=== PATIENT | female | born 1950 | race Hispanic/Latino ===

== ENCOUNTER 2017-03-19 11:51 | Inpatient (IN) | payer MEDICARE ==
[~2017-03-19] VITALS: Ht 157.5 cm; Wt 94.1 kg
[~2017-03-19 11:51] MED LIST: ALBU90AE IH; BUDE10.2 IH; FLUT100B IH; LISI-617 PO; METF10004 PO; MIRT15TA7 PO; OMEP40CA37 PO; PREG75 PO; ROSU20TA PO; TIOT18CA3 IH; TRAM50TA4 PO; XALA2.5OS OD; ZOLP10TA6 PO
[2017-03-19] MEDS ORDERED: FUROSEMIDE 10 MG/ML 2ML VIAL ONE (12:20)
[2017-03-19] MEDS ORDERED: FUROSEMIDE 10 MG/ML 4ML VIAL ONE (12:20)
[2017-03-19 12:32] LABS: BASOPHILS % (AUTO) 1.6 % (0.0-5.0); EOSINOPHILS % (AUTO) 7.9 % (0.0-8.0); HEMATOCRIT 27.5 % (36-48); LYMPHOCYTES % (AUTO) 11.4 % (21.0-51.0); MEAN CORPUSCULAR HEMOGLOBIN 25.7 pg (27.0-33.0); MEAN CORPUSCULAR HGB CONC 31.1 g/dL (32.0-36.0); MEAN CORPUSCULAR VOLUME 82.5 fL (79-99); MONOCYTES % (AUTO) 8.1 % (3.0-13.0); PLATELET COUNT (AUTO) 220 K/uL (130-400); RED BLOOD CELL COUNT(AUTO) 3.34 MIL/uL (4.00-5.50); RED CELL DISTRIBUTION WIDTH 18.2 % (11.0-15.5); WHITE BLOOD COUNT (AUTO) 7.7 K/uL (4.8-10.8)
[2017-03-19 12:36] LABS: ABG BASE EXCESS -10.5 mmol/L (-2.0-3.0); ABG HCO3 13.7 mmol/L (21.0-28.0); ABG OXYGEN SATURATION 97.6 % (95.0-99.0); ABG PCO2 27 mmHg (32-45)
[2017-03-19 12:40] LABS: CREATININE 6.2 mg/dL (0.5-1.5); POTASSIUM 5.4 mmol/L (3.5-5.1)
[2017-03-19 12:44] LABS: ALBUMIN 2.2 g/dL (3.5-5.0); BILIRUBIN,TOTAL 0.5 mg/dL (0.2-1.0); TOTAL PROTEIN, SERUM 6.8 g/dL (6.0-8.3)
[2017-03-19] MEDS ORDERED: NITROGLYCERIN 0.4 MG SL TAB SL ONE (12:51)
[2017-03-19] MEDS ORDERED: NITROGLYCERIN 1GM/1 INCH PACKET TD ONE (12:52)
[2017-03-19 13:37] LABS: INR 1.02 (0.85-1.15); PARTIAL THROMBOPLASTIN TIME 27.2 SEC (26.3-35.5); PROTHROMBIN TIME 10.7 SEC (9.6-11.6)
[2017-03-19 14:33] LABS: APPEARANCE,URINE SL CLOUDY (CLEAR); BILIRUBIN,URINE NEGATIVE (NEGATIVE); COLOR,URINE YELLOW (YELLOW); GLUCOSE, URINE (UA) 250 mg/dL (NEGATIVE); KETONES,URINE NEGATIVE (NEGATIVE); LEUKOCYTE ESTERASE ,URINE NEGATIVE (NEGATIVE); NITRATE,URINE NEGATIVE (NEGATIVE); OCCULT BLOOD,URINE SMALL (NEGATIVE); PROTEIN,URINE >=300 (NEGATIVE); UROBILINOGEN,URINE 0.2 mg/dL (0.2-1.0)
[2017-03-19 14:46] LABS: BACTERIA,URINE Few /HPF (None Seen)
[2017-03-19 14:47] LABS: COARSE GRANULAR CASTS,URINE 0-2 /LPF (None Seen); SQUAMOUS EPITHELIAL CELL,UR Few /LPF (0-2); YEAST,URINE BUDDING Rare /HPF (None Seen)
[2017-03-19] MEDS ORDERED: AMLODIPINE BESYLATE 5 MG TAB PO ONE ×2 (15:37→17:00)
[2017-03-19] MEDS ORDERED: CLONIDINE HCL 0.1 MG TABLET ONE (20:05)
[2017-03-20] VITALS (13 sets, daily range): BP systolic 137–196; BP diastolic 62–87
[2017-03-20] MEDS ORDERED: GLUCAGON 1MG KIT 1 MG ML IM PRN ×2 (01:15→02:15)
[2017-03-20] MEDS ORDERED: DEXTROSE 50%-WATER 50 ML DISP.SYRIN IV PRN ×2 (01:15→02:15)
[2017-03-20] MEDS ORDERED: LACTULOSE 20 GM/30 ML UDCUP PO PRN (01:15)
[2017-03-20] MEDS ORDERED: CLONIDINE HCL 0.1 MG TABLET PO PRN (01:15)
[2017-03-20] MEDS ORDERED: MORPHINE SULFATE 2 MG/ML 1ML SYG IVP PRN ×2 (01:15)
[2017-03-20] MEDS ORDERED: ONDANSETRON HCL 4 MG/2 ML VIAL IVP PRN (01:15)
[2017-03-20] MEDS ORDERED: METOLAZONE 2.5 MG TABLET PO SCH (02:15)
[2017-03-20] MEDS ORDERED: AMLODIPINE BESYLATE 5 MG TAB PO SCH (02:15)
[2017-03-20] MEDS ORDERED: IPRATROPIUM/ALBUTEROL SULFATE 3 ML SOLUTION IH ONE (02:28)
[2017-03-20] MEDS: INSULIN R PO SS1 SQ SCH ×4 (05:52→21:00)
[2017-03-20] MEDS ORDERED: IPRATROPIUM/ALBUTEROL SULFATE 3 ML SOLUTION IH PRN (06:00)
[2017-03-20 06:24] LABS: INR 1.08 (0.85-1.15); PARTIAL THROMBOPLASTIN TIME 27.5 SEC (26.3-35.5); PROTHROMBIN TIME 11.3 SEC (9.6-11.6)
[2017-03-20 06:43] LABS: % IRON SATURATION 6.6 % (22-44)
[2017-03-20] MEDS ORDERED: INSULIN HUMULIN R 100 UNIT/ML 3ML SQ SCH (07:30)
[2017-03-20] MEDS: FAMOTIDINE 20MG TAB 20 MG TAB PO SCH ×2 (08:21→21:03)
[2017-03-20] MEDS ORDERED: FUROSEMIDE 10 MG/ML 4ML VIAL IVP SCH (09:00)
[2017-03-20] MEDS ORDERED: COMPOUND IV MISC 1 EACH IVSOLN MISC PRN (09:30)
[2017-03-20] MEDS ORDERED: LIDOCAINE HCL 1% MDV 50ML VIAL ONE (09:33)
[2017-03-20] MEDS ORDERED: CEFAZOLIN 1GM / D5W 50ML 50 ML ONE (10:17)
[2017-03-20 11:02] LABS: HEMATOCRIT 24.3 % (36-48)
[2017-03-20 11:09] LABS: HEMOGLOBIN A1C 7.3 % (4.0-6.0)
[2017-03-20 11:11] LABS: ALBUMIN 1.9 g/dL (3.5-5.0); CREATININE 6.4 mg/dL (0.5-1.5)
[2017-03-20] MEDS ORDERED: IRON SUCROSE COMPLEX 100 MG in SODIUM CHLORIDE 0.9% 50 ML IV SCH (12:30)
[2017-03-20] MEDS: IRON SUCROSE COMPLEX 100 MG in SODIUM CHLORIDE 0.9% 50 ML IV SCH (13:26)
[2017-03-20] MEDS: LISINOPRIL 20 MG TABLET PO SCH (13:26)
[2017-03-20] MEDS: IPRATROPIUM/ALBUTEROL SULFATE 3 ML SOLUTION IH SCH (18:38)
[2017-03-20] MEDS ORDERED: SODIUM CHLORIDE 0.9% 1000ML 1,000 ML IV ONE (20:28)
[2017-03-20] MEDS ORDERED: HEPARIN SODIUM 5000UNIT/ML 1ML VIAL ONE (20:33)
[2017-03-20] MEDS ORDERED: SODIUM CHLORIDE 0.9% 1000ML 1,000 ML IV PRN (21:00)
[2017-03-20] MEDS ORDERED: HEPARIN SODIUM 5000UNIT/ML 1ML VIAL IJ PRN (21:00)
[2017-03-20] MEDS ORDERED: ALBUMIN (HUMAN) 25% 100 ML IV PRN (21:00)
[2017-03-20] MEDS ORDERED: 0.9% SODIUM CHLORIDE 250 ML IV BAG IV PRN (21:00)
[2017-03-20] MEDS: HYDRALAZINE HCL 20 MG/ML VIAL IV PRN (23:16)
[2017-03-21] MEDS: IPRATROPIUM/ALBUTEROL SULFATE 3 ML SOLUTION IH SCH ×4 (00:15→19:09)
[2017-03-21 00:27] VITALS: BP 175/77
[2017-03-21] MEDS: ACETAMINOPHEN 325 MG TAB PO PRN (00:51)
[2017-03-21 04:00] VITALS: BP 150/65
[2017-03-21 04:31] LABS: BASOPHILS % (AUTO) 1.6 % (0.0-5.0); EOSINOPHILS % (AUTO) 6.2 % (0.0-8.0); HEMATOCRIT 24.2 % (36-48); LYMPHOCYTES % (AUTO) 9.8 % (21.0-51.0); MEAN CORPUSCULAR HEMOGLOBIN 25.5 pg (27.0-33.0); MEAN CORPUSCULAR HGB CONC 31.5 g/dL (32.0-36.0); MEAN CORPUSCULAR VOLUME 80.9 fL (79-99); MONOCYTES % (AUTO) 9.1 % (3.0-13.0); NEUTROPHILS % (AUTO) 73.3 % (40.0-77.0); PLATELET COUNT (AUTO) 179 K/uL (130-400); RED BLOOD CELL COUNT(AUTO) 2.99 MIL/uL (4.00-5.50); RED CELL DISTRIBUTION WIDTH 18.1 % (11.0-15.5); WHITE BLOOD COUNT (AUTO) 7.9 K/uL (4.8-10.8)
[2017-03-21 04:50] LABS: CREATININE 5.1 mg/dL (0.5-1.5); POTASSIUM 4.6 mmol/L (3.5-5.1); THYROID STIMULATING HORMONE 5.27 uIU/mL (0.36-3.74)
[2017-03-21 04:53] LABS: B-TYPE NATRIURETIC PEPTIDE 1180 pg/mL (0-100)
[2017-03-21] MEDS: INSULIN R PO SS1 SQ SCH ×4 (05:59→21:00)
[2017-03-21 07:23] LABS: HEPATITIS Bs ANTIGEN SCREEN P Negative (Negative)
[2017-03-21 08:03] VITALS: BP 157/61
[2017-03-21] MEDS: FAMOTIDINE 20MG TAB 20 MG TAB PO SCH ×2 (08:05→21:23)
[2017-03-21] MEDS ORDERED: ENOXAPARIN SODIUM 30 MG/0.3 ML SQ SCH (09:00)
[2017-03-21] MEDS: IRON SUCROSE COMPLEX 100 MG in SODIUM CHLORIDE 0.9% 50 ML IV SCH (09:12)
[2017-03-21] MEDS: LISINOPRIL 20 MG TABLET PO SCH (09:12)
[2017-03-21] MEDS ORDERED: MONT10TA21 PO (11:23)
[2017-03-21] MEDS ORDERED: GABA-533 PO (11:23)
[2017-03-21] MEDS ORDERED: INSU200I4 SQ (11:23)
[2017-03-21] MEDS ORDERED: BIMA12.5OS OU (11:23)
[2017-03-21] MEDS ORDERED: CYCL30DR OU (11:23)
[2017-03-21] MEDS ORDERED: LINA290C PO (11:23)
[2017-03-21] MEDS ORDERED: AMLO5TAB2 PO (11:23)
[2017-03-21] MEDS ORDERED: ALBU18HF7 IH (11:23)
[2017-03-21] MEDS ORDERED: HYDR-3421 PO (11:23)
[2017-03-21 11:31] VITALS: BP 188/80
[2017-03-21] MEDS ORDERED: TRAMADOL HCL 50 MG TABLET PO PRN (12:00)
[2017-03-21] MEDS ORDERED: SUB TO ALBUTEROL 2.5MG/3ML NEBULES PER P&T IH PRN (12:00)
[2017-03-21] MEDS: GABAPENTIN 100 MG CAPSULE PO SCH ×2 (14:00→21:23)
[2017-03-21] MEDS: GABAPENTIN 300 MG CAPSULE PO SCH ×2 (14:00→21:23)
[2017-03-21] MEDS ORDERED: PHARMACY COMMUNICATION MISC SCH (15:00)
[2017-03-21 16:14] VITALS: BP 198/94
[2017-03-21] MEDS ORDERED: LORAZEPAM 0.5 MG TABLET PO PRN (17:15)
[2017-03-21 20:41] VITALS: BP 181/76
[2017-03-21] MEDS: BIMATOPROST OU SCH (21:00)
[2017-03-21] MEDS: **HM**(Cyclosporine (Restasis) 1 EACH) OU SCH (21:00)
[2017-03-21] MEDS: ZOLPIDEM TARTRATE 5 MG TAB PO SCH (21:23)
[2017-03-21] MEDS: HYDROXYZINE HCL 25 MG TABLET PO SCH (21:23)
[2017-03-21] MEDS: MONTELUKAST SODIUM 10 MG TAB PO SCH (21:23)
[2017-03-21] MEDS: HYDRALAZINE HCL 20 MG/ML VIAL IV PRN (23:11)
[2017-03-22] VITALS: BP 184/97
[2017-03-22] MEDS: IPRATROPIUM/ALBUTEROL SULFATE 3 ML SOLUTION IH SCH ×4 (01:31→19:19)
[2017-03-22 04:00] VITALS: BP 153/63
[2017-03-22 05:14] LABS: BASOPHILS % (AUTO) 1.9 % (0.0-5.0); HEMATOCRIT 26.1 % (36-48); LYMPHOCYTES % (AUTO) 13.8 % (21.0-51.0); MEAN CORPUSCULAR HEMOGLOBIN 26.2 pg (27.0-33.0); MEAN CORPUSCULAR HGB CONC 32.6 g/dL (32.0-36.0); MEAN CORPUSCULAR VOLUME 80.4 fL (79-99); MONOCYTES % (AUTO) 13.2 % (3.0-13.0); NEUTROPHILS % (AUTO) 62.1 % (40.0-77.0); PLATELET COUNT (AUTO) 166 K/uL (130-400); RED BLOOD CELL COUNT(AUTO) 3.25 MIL/uL (4.00-5.50); WHITE BLOOD COUNT (AUTO) 7.4 K/uL (4.8-10.8)
[2017-03-22 05:31] LABS: CREATININE 4.2 mg/dL (0.5-1.5); POTASSIUM 3.8 mmol/L (3.5-5.1)
[2017-03-22 05:32] LABS: B-TYPE NATRIURETIC PEPTIDE 1540 pg/mL (0-100)
[2017-03-22] MEDS: INSULIN R PO SS1 SQ SCH ×4 (06:36→21:00)
[2017-03-22 08:00] VITALS: BP 145/66
[2017-03-22] MEDS: AMLODIPINE BESYLATE 5 MG TAB PO SCH (08:23)
[2017-03-22] MEDS: LISINOPRIL 20 MG TABLET PO SCH (08:23)
[2017-03-22] MEDS: FAMOTIDINE 20MG TAB 20 MG TAB PO SCH ×2 (08:23→21:11)
[2017-03-22] MEDS: HYDROXYZINE HCL 25 MG TABLET PO SCH ×2 (08:23→21:11)
[2017-03-22] MEDS: GABAPENTIN 100 MG CAPSULE PO SCH ×3 (08:23→21:11)
[2017-03-22] MEDS: GABAPENTIN 300 MG CAPSULE PO SCH ×3 (08:24→21:11)
[2017-03-22] MEDS: **HM**(Cyclosporine (Restasis) 1 EACH) OU SCH ×2 (08:30→21:00)
[2017-03-22] MEDS: ***HM*** (Linaclotide (Linzess) 290 MCG) PO SCH (08:30)
[2017-03-22] MEDS ORDERED: IRON SUCROSE COMPLEX 100 MG in SODIUM CHLORIDE 0.9% 50 ML IV SCH (09:00)
[2017-03-22] MEDS: IRON SUCROSE COMPLEX 100 MG in SODIUM CHLORIDE 0.9% 50 ML IV SCH (09:31)
[2017-03-22 12:00] VITALS: BP 167/71
[2017-03-22 15:48] VITALS: BP 152/67
[2017-03-22] MEDS: BIMATOPROST OU SCH (21:00)
[2017-03-22] MEDS: ZOLPIDEM TARTRATE 5 MG TAB PO SCH ×2 (21:00→21:19)
[2017-03-22] MEDS: MONTELUKAST SODIUM 10 MG TAB PO SCH (21:11)
[2017-03-23] VITALS (8 sets, daily range): BP systolic 132–202; BP diastolic 60–94
[2017-03-23] MEDS: IPRATROPIUM/ALBUTEROL SULFATE 3 ML SOLUTION IH SCH ×5 (00:05→23:21)
[2017-03-23 05:38] LABS: BASOPHILS % (AUTO) 1.1 % (0.0-5.0); EOSINOPHILS % (AUTO) 8.7 % (0.0-8.0); HEMATOCRIT 26.9 % (36-48); LYMPHOCYTES % (AUTO) 12.1 % (21.0-51.0); MEAN CORPUSCULAR HEMOGLOBIN 26.4 pg (27.0-33.0); MEAN CORPUSCULAR HGB CONC 31.9 g/dL (32.0-36.0); MEAN CORPUSCULAR VOLUME 82.7 fL (79-99); MONOCYTES % (AUTO) 12.8 % (3.0-13.0); NEUTROPHILS % (AUTO) 65.3 % (40.0-77.0); PLATELET COUNT (AUTO) 175 K/uL (130-400); RED BLOOD CELL COUNT(AUTO) 3.26 MIL/uL (4.00-5.50); RED CELL DISTRIBUTION WIDTH 17.1 % (11.0-15.5); WHITE BLOOD COUNT (AUTO) 7.4 K/uL (4.8-10.8)
[2017-03-23 05:44] LABS: POTASSIUM 4.1 mmol/L (3.5-5.1)
[2017-03-23 06:07] LABS: B-TYPE NATRIURETIC PEPTIDE 1150 pg/mL (0-100)
[2017-03-23] MEDS: INSULIN R PO SS1 SQ SCH ×4 (07:06→21:00)
[2017-03-23] MEDS: GABAPENTIN 100 MG CAPSULE PO SCH ×3 (08:50→21:21)
[2017-03-23] MEDS: GABAPENTIN 300 MG CAPSULE PO SCH ×3 (08:50→21:21)
[2017-03-23] MEDS: LISINOPRIL 20 MG TABLET PO SCH (08:50)
[2017-03-23] MEDS: FAMOTIDINE 20MG TAB 20 MG TAB PO SCH ×2 (08:50→21:21)
[2017-03-23] MEDS: HYDROXYZINE HCL 25 MG TABLET PO SCH ×2 (08:50→21:21)
[2017-03-23] MEDS: AMLODIPINE BESYLATE 5 MG TAB PO SCH (08:50)
[2017-03-23] MEDS: IRON SUCROSE COMPLEX 100 MG in SODIUM CHLORIDE 0.9% 50 ML IV SCH (08:54)
[2017-03-23] MEDS: **HM**(Cyclosporine (Restasis) 1 EACH) OU SCH ×2 (08:58→19:33)
[2017-03-23] MEDS: ***HM*** (Linaclotide (Linzess) 290 MCG) PO SCH (08:58)
[2017-03-23] MEDS: BENZOCAINE/MENTH/CETYLPYRD CL 1 EACH LOZENGE MM SCH ×2 (15:35→21:21)
[2017-03-23] MEDS: ACETAMINOPHEN 325 MG TAB PO PRN (16:11)
[2017-03-23] MEDS: HYDRALAZINE HCL 20 MG/ML VIAL IV PRN (16:44)
[2017-03-23] MEDS: BIMATOPROST OU SCH (19:33)
[2017-03-23] MEDS: ZOLPIDEM TARTRATE 5 MG TAB PO SCH (21:21)
[2017-03-23] MEDS: MONTELUKAST SODIUM 10 MG TAB PO SCH (21:22)
[2017-03-24 04:00] VITALS: BP 155/70
[2017-03-24 04:41] LABS: HEMATOCRIT 28.4 % (36-48); MEAN CORPUSCULAR HEMOGLOBIN 26.3 pg (27.0-33.0); MEAN CORPUSCULAR VOLUME 82.2 fL (79-99); PLATELET COUNT (AUTO) 172 K/uL (130-400); RED BLOOD CELL COUNT(AUTO) 3.45 MIL/uL (4.00-5.50); RED CELL DISTRIBUTION WIDTH 17.4 % (11.0-15.5)
[2017-03-24 04:53] LABS: CREATININE 3.7 mg/dL (0.5-1.5); POTASSIUM 4.1 mmol/L (3.5-5.1)
[2017-03-24] MEDS: IPRATROPIUM/ALBUTEROL SULFATE 3 ML SOLUTION IH SCH (05:38)
[2017-03-24] MEDS: INSULIN R PO SS1 SQ SCH ×4 (06:25→21:00)
[2017-03-24 07:00] VITALS: BP 161/62
[2017-03-24] MEDS: GABAPENTIN 100 MG CAPSULE PO SCH ×3 (08:29→21:53)
[2017-03-24] MEDS: AMLODIPINE BESYLATE 5 MG TAB PO SCH (08:30)
[2017-03-24] MEDS: FAMOTIDINE 20MG TAB 20 MG TAB PO SCH ×2 (08:30→21:53)
[2017-03-24] MEDS: GABAPENTIN 300 MG CAPSULE PO SCH ×3 (08:30→21:00)
[2017-03-24] MEDS: BENZOCAINE/MENTH/CETYLPYRD CL 1 EACH LOZENGE MM SCH ×3 (08:30→21:54)
[2017-03-24] MEDS: LISINOPRIL 20 MG TABLET PO SCH (08:30)
[2017-03-24] MEDS: HYDROXYZINE HCL 25 MG TABLET PO SCH ×2 (08:30→21:53)
[2017-03-24] MEDS: **HM**(Cyclosporine (Restasis) 1 EACH) OU SCH ×2 (09:00→21:00)
[2017-03-24] MEDS: ***HM*** (Linaclotide (Linzess) 290 MCG) PO SCH (09:00)
[2017-03-24] MEDS: IRON SUCROSE COMPLEX 100 MG in SODIUM CHLORIDE 0.9% 50 ML IV SCH (09:06)
[2017-03-24 11:36] VITALS: BP 193/80
[2017-03-24] MEDS ORDERED: IPRATROPIUM/ALBUTEROL SULFATE 3 ML SOLUTION IH PRN (12:45)
[2017-03-24 15:00] VITALS: BP 180/73
[2017-03-24 20:00] VITALS: BP 155/70
[2017-03-24] MEDS: BIMATOPROST OU SCH (21:00)
[2017-03-24] MEDS: MONTELUKAST SODIUM 10 MG TAB PO SCH (21:53)
[2017-03-24] MEDS: ZOLPIDEM TARTRATE 5 MG TAB PO SCH (21:53)
[2017-03-25] VITALS (27 sets, daily range): BP systolic 124–174; BP diastolic 49–84
[2017-03-25 05:54] LABS: HEMATOCRIT 28.8 % (36-48); MEAN CORPUSCULAR HEMOGLOBIN 26.9 pg (27.0-33.0); MEAN CORPUSCULAR HGB CONC 32.2 g/dL (32.0-36.0); MEAN CORPUSCULAR VOLUME 83.6 fL (79-99); NUCLEATED RED BLOOD CELLS 0.1 % (0.0-0.19); PLATELET COUNT (AUTO) 174 K/uL (130-400); RED BLOOD CELL COUNT(AUTO) 3.44 MIL/uL (4.00-5.50); RED CELL DISTRIBUTION WIDTH 17.8 % (11.0-15.5); WHITE BLOOD COUNT (AUTO) 6.7 K/uL (4.8-10.8)
[2017-03-25 06:00] LABS: INR 1.06 (0.85-1.15); PARTIAL THROMBOPLASTIN TIME 27.2 SEC (26.3-35.5); PROTHROMBIN TIME 11.1 SEC (9.6-11.6)
[2017-03-25 06:16] LABS: CREATININE 4.5 mg/dL (0.5-1.5); POTASSIUM 3.9 mmol/L (3.5-5.1)
[2017-03-25] MEDS: INSULIN R PO SS1 SQ SCH ×4 (07:30→20:46)
[2017-03-25] MEDS ORDERED: GENTAMICIN SULFATE/PF 10 MG/1 ML 2ML IV SCH (08:00)
[2017-03-25] MEDS: CEFAZOLIN SODIUM 1 GM VIAL IVP SCH ×2 (08:00→13:15)
[2017-03-25] MEDS ORDERED: CEFAZOLIN 2GM / 50 ML 50 ML IV SCH (08:00)
[2017-03-25] MEDS: GENTAMICIN SULFATE 200 MG in SODIUM CHLORIDE 0.9% 100 ML IV SCH ×2 (08:00→13:31)
[2017-03-25] MEDS: FAMOTIDINE 20MG TAB 20 MG TAB PO SCH ×2 (09:00→20:56)
[2017-03-25] MEDS: GABAPENTIN 300 MG CAPSULE PO SCH ×3 (09:00→20:55)
[2017-03-25] MEDS: GABAPENTIN 100 MG CAPSULE PO SCH ×3 (09:00→20:55)
[2017-03-25] MEDS: **HM**(Cyclosporine (Restasis) 1 EACH) OU SCH ×2 (09:00→21:00)
[2017-03-25] MEDS: BENZOCAINE/MENTH/CETYLPYRD CL 1 EACH LOZENGE MM SCH ×3 (09:00→20:55)
[2017-03-25] MEDS: ***HM*** (Linaclotide (Linzess) 290 MCG) PO SCH (09:00)
[2017-03-25] MEDS ORDERED: BUPIVACAINE/PF 0.25% 30ML VIAL IJ ONE (12:46)
[2017-03-25] MEDS ORDERED: LIDOCAINE HCL 1% 20 ML VIAL ONE (12:46)
[2017-03-25] MEDS ORDERED: BUPIVACAINE/PF 0.5% 30ML VIAL ONE (12:47)
[2017-03-25] MEDS ORDERED: PROPOFOL 10 MG/ML 20ML VIAL IV ONE (13:11)
[2017-03-25] MEDS ORDERED: HEPARIN SODIUM 1000UNIT/ML 10ML VIAL ONE (13:11)
[2017-03-25] MEDS: HYDROXYZINE HCL 25 MG TABLET PO SCH ×2 (14:30→21:00)
[2017-03-25] MEDS: IRON SUCROSE COMPLEX 100 MG in SODIUM CHLORIDE 0.9% 50 ML IV SCH (16:46)
[2017-03-25] MEDS: AMLODIPINE BESYLATE 5 MG TAB PO SCH (16:48)
[2017-03-25] MEDS: MONTELUKAST SODIUM 10 MG TAB PO SCH (20:56)
[2017-03-25] MEDS: ZOLPIDEM TARTRATE 5 MG TAB PO SCH (20:56)
[2017-03-25] MEDS: BIMATOPROST OU SCH (21:00)
[2017-03-26 03:00] VITALS: BP 153/61
[2017-03-26 06:12] LABS: HEMATOCRIT 29.6 % (36-48); MEAN CORPUSCULAR HEMOGLOBIN 27.4 pg (27.0-33.0); MEAN CORPUSCULAR HGB CONC 32.7 g/dL (32.0-36.0); MEAN CORPUSCULAR VOLUME 83.8 fL (79-99); PLATELET COUNT (AUTO) 175 K/uL (130-400); RED BLOOD CELL COUNT(AUTO) 3.53 MIL/uL (4.00-5.50); RED CELL DISTRIBUTION WIDTH 17.5 % (11.0-15.5); WHITE BLOOD COUNT (AUTO) 8.9 K/uL (4.8-10.8)
[2017-03-26 06:18] LABS: CREATININE 5.3 mg/dL (0.5-1.5); POTASSIUM 4.4 mmol/L (3.5-5.1)
[2017-03-26] MEDS: INSULIN R PO SS1 SQ SCH ×3 (06:36→16:30)
[2017-03-26 08:02] VITALS: BP 155/63
[2017-03-26] MEDS: GABAPENTIN 100 MG CAPSULE PO SCH ×2 (09:00→14:00)
[2017-03-26] MEDS ORDERED: LISINOPRIL 20 MG TABLET PO SCH (09:00)
[2017-03-26] MEDS: ***HM*** (Linaclotide (Linzess) 290 MCG) PO SCH (09:00)
[2017-03-26] MEDS: GABAPENTIN 300 MG CAPSULE PO SCH ×2 (09:00→14:00)
[2017-03-26] MEDS: **HM**(Cyclosporine (Restasis) 1 EACH) OU SCH (09:00)
[2017-03-26] MEDS: BENZOCAINE/MENTH/CETYLPYRD CL 1 EACH LOZENGE MM SCH ×2 (09:04→13:17)
[2017-03-26] MEDS: HYDROXYZINE HCL 25 MG TABLET PO SCH (09:05)
[2017-03-26] MEDS: AMLODIPINE BESYLATE 5 MG TAB PO SCH (09:06)
[2017-03-26] MEDS: FAMOTIDINE 20MG TAB 20 MG TAB PO SCH (09:06)
[2017-03-26] MEDS: IRON SUCROSE COMPLEX 100 MG in SODIUM CHLORIDE 0.9% 50 ML IV SCH (09:06)
[2017-03-26 11:23] VITALS: BP 161/66
[2017-03-26] MEDS: ACETAMINOPHEN 325 MG TAB PO PRN (13:17)
[2017-03-26] MEDS ORDERED: NYSTATIN 15 GM POWDER TP SCH (14:00)
[2017-03-26 16:50] VITALS: BP 167/59
== END 2017-03-26 17:29 | disposition home or self-care (01) | DRG 628 ==
LOC: EDH 11:51 → EDHIP 16:00 → OBSVTOIN 16:00 → INTOOBSV 16:00 → 4AH 03-20 00:37 → 4BH 03-24 18:20
PROVIDERS: ADMIT Family Medicine; ATTEND Family Medicine
PROC: 05HM33Z Insertion of Infusion Device into Right Internal Jugular Vein, Percutaneous Approach (ICD-10-PCS; principal; 2017-03-20)
PROC: B543ZZA Ultrasonography of Right Jugular Veins, Guidance (ICD-10-PCS; 2017-03-20)
PROC: B5131ZA Fluoroscopy of Right Jugular Veins using Low Osmolar Contrast, Guidance (ICD-10-PCS; 2017-03-20)
PROC: 30233N1 Transfusion of Nonautologous Red Blood Cells into Peripheral Vein, Percutaneous Approach (ICD-10-PCS; 2017-03-20)
PROC: 5A1D70Z Performance of Urinary Filtration, Intermittent, Less than 6 Hours Per Day (ICD-10-PCS; 2017-03-20)
PROC: 5A1D70Z Performance of Urinary Filtration, Intermittent, Less than 6 Hours Per Day (ICD-10-PCS; 2017-03-21)
PROC: 5A1D70Z Performance of Urinary Filtration, Intermittent, Less than 6 Hours Per Day (ICD-10-PCS; 2017-03-23)
PROC: 03180ZD Bypass Left Brachial Artery to Upper Arm Vein, Open Approach (ICD-10-PCS; 2017-03-25)
PROC: 5A1D70Z Performance of Urinary Filtration, Intermittent, Less than 6 Hours Per Day (ICD-10-PCS; 2017-03-26)
DX: E87.70 Fluid overload, unspecified (principal); N18.6 End stage renal disease; N17.9 Acute kidney failure, unspecified; J81.1 Chronic pulmonary edema; E11.21 Type 2 diabetes mellitus with diabetic nephropathy; I12.0 Hypertensive chronic kidney disease with stage 5 chronic kidney disease or end stage renal disease; E11.42 Type 2 diabetes mellitus with diabetic polyneuropathy; E11.51 Type 2 diabetes mellitus with diabetic peripheral angiopathy without gangrene; E66.01 Morbid (severe) obesity due to excess calories; D63.1 Anemia in chronic kidney disease; E11.22 Type 2 diabetes mellitus with diabetic chronic kidney disease; E11.319 Type 2 diabetes mellitus with unspecified diabetic retinopathy without macular edema; E78.00 Pure hypercholesterolemia, unspecified; E78.5 Hyperlipidemia, unspecified; J44.9 Chronic obstructive pulmonary disease, unspecified; R09.02 Hypoxemia; Z79.899 Other long term (current) drug therapy; Z99.2 Dependence on renal dialysis; Z91.19 Patient's noncompliance with other medical treatment and regimen; Z91.15 Patient's noncompliance with renal dialysis; Z90.710 Acquired absence of both cervix and uterus; Z68.38 Body mass index [BMI] 38.0-38.9, adult; Z91.041 Radiographic dye allergy status; Z90.49 Acquired absence of other specified parts of digestive tract; Z83.3 Family history of diabetes mellitus; Z82.49 Family history of ischemic heart disease and other diseases of the circulatory system
CPT/HCPCS: 36415; 36558; 36600; 71045; 77001; 80048; 80053; 80061; 81001; 82040; 82550; 82565; 82728; 82803; 82948; 83036; 83540; 83550; 83880; 84443; 84484; 84520; 85025; 85027; 85610; 85730; 86701; 86704; 86706; 86850; 86900; 86901; 86922; 87340; 87390; 87520; 90935; 93005; 93306; 93970; 93971; 94640; 94664; C1750; J0360; J0690; J1580; J1644; J1650; J1756; J1940; J2405; J2704; J3490; J7030; P9016

== ENCOUNTER → 2022-01-02 | Outpatient (CLI) | payer OTHER, MEDICARE ==
[~2022-01-02] MED LIST changes: +ALBU18HF7 IH; -ALBU90AE IH; +AMLO-257 PO; +BIMA12.5OS OU; -BUDE10.2 IH; +CYCL30DR OU; -FLUT100B IH; +GABA-533 PO; +HYDR-3421 PO; +INSU200I4 SQ; +LINA290C PO; -LISI-617 PO; -METF10004 PO; -MIRT15TA7 PO; +MONT10TA21 PO; +OMEP40CA21 PO; -OMEP40CA37 PO; -PREG75 PO; -ROSU20TA PO; -TIOT18CA3 IH; -XALA2.5OS OD
== END | disposition home or self-care (01) ==
LOC: SHCH 11:14
PROVIDERS: ATTEND Internal Medicine Cardiovascular Disease
DX: I50.32 Chronic diastolic (congestive) heart failure (principal); E11.9 Type 2 diabetes mellitus without complications; R07.9 Chest pain, unspecified; E78.5 Hyperlipidemia, unspecified
CPT/HCPCS: 93306

== ENCOUNTER → 2022-05-01 | Outpatient (CLI) | payer OTHER, MEDICARE ==
[~2022-05-01] MED LIST changes: +MONT-47 PO; -MONT10TA21 PO; +REGADENOSON 0.4 MG/5 ML PF SYG IVP ONE
== END | disposition home or self-care (01) ==
LOC: SHCH 09:02
PROVIDERS: ATTEND Internal Medicine Cardiovascular Disease
DX: R07.9 Chest pain, unspecified (principal); I50.32 Chronic diastolic (congestive) heart failure
CPT/HCPCS: 78452; 96374; 93017; J2785; A9500 ×2

== ENCOUNTER 2024-01-13 18:18 | Inpatient (IN) | payer OTHER, MEDICARE ==
[~2024-01-13] VITALS: Ht 149.9 cm; Wt 80.7 kg
[2024-01-13] VITALS (10 sets, daily range): BP systolic 142–172; BP diastolic 56–63; PULSE 64–90; RESP 19–22; TEMP 97.8; O2SAT 99–100
[~2024-01-13 18:18] MED LIST changes: -ALBUTEROL 0.083% 2.5 MG/3 ML INH IH ONE
[2024-01-13 18:41] LABS: BASOPHILS # (AUTO) 0.05 K/uL (0.00-0.20); BASOPHILS % (AUTO) 0.8 % (0.0-5.0); EOSINOPHILS # (AUTO) 0.43 K/uL (0.00-0.70); EOSINOPHILS % (AUTO) 6.7 % (0.0-8.0); HEMATOCRIT 37.5 % (36-48); IMMATURE GRANULOCYTE ABSOLUTE 0.04 K/uL (0-1); LYMPHOCYTES # (AUTO) 1.2 K/uL (1.0-4.8); LYMPHOCYTES % (AUTO) 18.6 % (21.0-51.0); MEAN CORPUSCULAR HEMOGLOBIN 32.7 pg (27.0-33.0); MEAN CORPUSCULAR HGB CONC 31.7 g/dL (32.0-36.0); MONOCYTES # (AUTO) 0.5 K/uL (0.1-1.0); MONOCYTES % (AUTO) 7.9 % (3.0-13.0); NEUTROPHILS # (AUTO) 4.2 K/uL (1.8-7.7); NEUTROPHILS % (AUTO) 65.4 % (40.0-77.0); PLATELET COUNT (AUTO) 92 K/uL (130-400); RED BLOOD CELL COUNT(AUTO) 3.64 MIL/uL (4.00-5.50); RED CELL DISTRIBUTION WIDTH 14.6 % (11.0-15.5); WHITE BLOOD COUNT (AUTO) 6.5 K/uL (4.8-10.8)
[2024-01-13 19:01] LABS: B-TYPE NATRIURETIC PEPTIDE 1720 pg/mL (0-100)
[2024-01-13 19:05] LABS: CREATININE 9.2 mg/dL (0.5-1.0); POTASSIUM 6.5 mmol/L (3.5-5.1)
--- NOTE | 2024-01-13 19:30 | HMCIMG ---
CHEST 1VW REASON: sob COMPARISON: 01/13/2024 FINDINGS: There is stable cardial megaly. There is no pulmonary vascular congestion. Lungs are clear. Dialysis catheter is again noted on the right. IMPRESSION: 1. Stable cardiomegaly, no acute finding.
--- NOTE | 2024-01-13 19:37 | NUR ---
ASSUMED PT CARE AT THIS TIME
--- NOTE | 2024-01-13 19:40 | NUR ---
PT REPORTS SHE MISSED DIALYSIS TODAY, LAST DIALYSIS DAY WAS SATURDAY, DIALYSIS DAYS M,W,F
[2024-01-13] MEDS: ALBUTEROL 0.083% 2.5 MG/3 ML INH IH SCH (19:56)
[2024-01-13] MEDS: CALCIUM GLUC 1GM 1 GM in 0.9%NACL 100ML 100 ML IV ONE (20:11)
[2024-01-13] MEDS: DEXTROSE 50%-WATER 25 GM/50 ML VIAL IV ONE (20:12)
[2024-01-13] MEDS: DEXTROSE 50%-WATER 50 ML DISP.SYRIN IV ONE (20:12)
[2024-01-13] MEDS: INSULIN humuLIN R 100 UNIT/ML 3ML IV ONE (20:12)
--- NOTE | 2024-01-13 20:13 | ERN ---
General Chief Complaint: Chest Pain Stated Complaint: CHEST PAIN Time Seen by MD: 18:20 Time Seen by Midlevel: 18:20 Source: patient History of Present Illness Initial Comments Patient is a 73-year-old female with a past medical history of end-stage renal disease on hemodialysis presenting to the emergency department with chest pain and shortness for breath. According to daughter was at bedside, patient was set to have her fistula fixed surgically tomorrow. She was called today to get preop labs done before 2:00 p.m. however that was at the same time her dialysis was scheduled. She decided to missed dialysis and go to her preop labs. She was later called during the day to immediately report to the ER after she was found to have a potassium of 7.5. Patient was not able to immediately report to the ER in waited several hours until her daughter could bring her to the ER. On arrival patient is reporting an increase of shortness for breath and chest pain. Denies any other complaints. Patient is on a Saturday and Saturday dialysis schedule and is followed by clarifying plant operator Dr. Lu. She has a right c hest access with her last dialysis being done on Saturday which was three days ago. Allergies: Coded Allergies: Iodinated Contrast- Oral and IV Dye (Unverified Allergy, Unknown, 03/20/17) Home Meds Reported Medications Lactulose (Lactulose) 10 Gram/15 Ml Solution, 30 ML PO BID for constipation, #500 ML 0 Refills 01/13/24 Ketorolac Tromethamine (Acular 0.5% Ophth Soln) 0.5 % Opsol, 1 DROP OD BID for itching, #5 ML 0 Refills 01/13/24 Semaglutide (Ozempic) 1 Mg/0.75 Ml (4 Mg/3 Ml) Pen.injctr, 0.5 MG SQ wed for 30 Days, #3 ML 0 Refills 01/13/24 Calcium Acetate (Calcium Acetate) 667 Mg Tablet, 2 TAB PO TID for 30 Days, #180 TAB 0 Refills WITH MEALS 01/13/24 Sodium Zirconium Cyclosilicate (Lokelma) 10 Gram Powd.pack, 1 PACKET PO ttss for 30 Days, #30 PACKET 0 Refills 01/13/24 Loteprednol Etabonate (Loteprednol Etabonate) 0.5 % Drops.susp, 2 DROP OP BID for 14 Days, #5 ML 0 Refills 01/13/24 Bimatoprost (Lumigan 0.01% Ophth Soln) 0.01 % Opsol, 1 DROP OD BID for 30 Days, ML 0 Refills 01/13/24 Aspirin (Aspirin) 81 Mg Tab.chew, 81 MG PO mwf, TAB.CHEW 01/13/24 Midodrine HCl (Midodrine HCl) 5 Mg Tablet, 1 TAB PO TID for 30 Days, #90 TAB 0 Refills 01/13/24 Diclofenac Sodium (Diclofenac Sodium) 3 % Gel..gram., 100 GM TP AD PRN for PAIN 01/13/24 Alprazolam (Alprazolam) 0.5 Mg Tab.rapdis, 0.5 MG PO AD PRN for ANXIETY/AGITATION, TAB 01/13/24 Pregabalin (Pregabalin) 100 Mg Capsule, 1 CAP PO TID PRN for PAIN MDD 3 Capsule(s) for 30 Days, #90 CAP 0 Refills 01/13/24 Tizanidine HCl (Tizanidine HCl) 4 Mg Capsule, 4 MG PO AD PRN for anxiety, CAP 01/13/24 Insulin Degludec (Tresiba Flextouch U-200) 200 Unit/Ml (3 Ml) Insuln.pen, 30 UNIT SQ HS, SYRINGE 03/21/17 Albuterol Sulfate (Ventolin Hfa) 18 Gm Hfa.aer.ad, 2 PUFF IH Q4PRN PRN for SHORTNESS OF BREATH, INHALER 03/21/17 Omeprazole (Omeprazole) 40 Mg Capsule.dr, 40 MG PO DAILY, CAP 11/16/14 Zolpidem Tartrate (Zolpidem Tartrate) 10 Mg Tablet, 10 MG PO HS, TAB 11/16/14 Discontinued Reported Medications Hydroxyzine HCl (Hydroxyzine HCl) 25 Mg Tablet, 25 MG PO BID, TAB 03/21/17 Linaclotide (Linzess) 290 Mcg Capsule, 290 MCG PO AM, CAP 03/21/17 Amlodipine Besylate (Amlodipine Besylate) 5 Mg Tablet, 5 MG PO AM, TAB 03/21/17 Cyclosporine (Restasis) 1 Each Droperette, 1 EACH OU BID, DROP 03/21/17 Montelukast Sodium (Singulair) 10 Mg Tablet, 10 MG PO HS, TAB 03/21/17 Bimatoprost (Lumigan 0.01% Ophth Soln) 0.01 % Opsol, 2 DROP OU BID, DROP 03/21/17 Gabapentin (Gabapentin) 400 Mg Capsule, 400 MG PO TID, CAP 03/21/17 Tramadol Hcl (Tramadol HCl) 50 Mg Tablet, 50 MG PO BID PRN for PAIN LEVEL 1 TO 5, TAB 11/16/14 Discontinued Scripts Cephalexin Monohydrate (Keflex) 500 Mg Cap, 500 MG PO BID for 5 Days, #10 CAP 0 Refills Prov:JOSEFINA EDWARDS MD 07/19/22 Past Medical History Past Medical History: Diabetes-Type II, Hypertension, Renal Disese, Renal Failure Past Surgical History: LAVA Social History Social History: Negative ROS Dictation CONSTITUTIONAL: Negative except for HPI HEAD/FACE: Negative except for HPI EENT: Negative except for HPI RESPIRATORY: Negative except for HPI GASTROINTESTINAL/ABDOMINAL: Negative except for HPI GENITOURINARY: Negative except for HPI MUSCULOSKELETAL: Negative except for HPI INTEGUMENTARY: Negative except for HPI NEUROLOGICAL/PSYCH: Negative except for HPI HEMATOLOGIC/LYMPHATIC: Negative except for HPI All Systems Negative, Except as noted above. 13 point review of systems assessed and all negative except for above. Physical Exam Physical Exam Dictation Vital Signs reviewed General Appearance: Alert, oriented x 3, moderate respiratory distress, ill- appearing, pale Head and Face: non-traumatic. Eyes: PERRL, pink conjunctivas, eyelid no trauma, anterior chamber with arcus senilis. Ears: Pinnas intact and no signs of trauma or erythema ear canals clear and no discharge TM no erythema Nose: No discharge, no bleeding. Oropharynx: Mouth normal, tongue pink, pharynx clear,no erythema, tonsils no exudates, no abscesses noted, mucous membrane moist Neck: Supple, non-tender, no thyromegaly, no masses, no JVD, no bruits Breast:Deferred Chest:No tenderness, no crepitus, no paradoxical movement, no retractions Lungs: Rales to bilateral lung alvarez, tachypneic Heart: Regular rate, regular rhythm, no murmur, no gallops Vascular: 2+ pitting edema to bilateral lower extremities Abdomen: Soft, positive bowel sounds, nondistended, no guarding, nontender, no rebound, no masses no hepatomegaly, no splenomegaly, no Weiss's sign, no hernias. Rectal: Deferred Genital: Deferred Neurological: Normal speech, motor function intact, sensory function intact Musculoskeletal: Neck nontender, full range of motion, back nontender, full range of motion, Extremities: nontender, full range of motion Skin: Color pink, dry, no turgor, no rash, no lacerations, no abrasions, no contusions. Lymphatic: Deferred Results Laboratory and Microbiology Lab and Micro Result Laboratory Tests Test 01/13/24 18:31 01/13/24 20:10 White Blood Count 6.5 K/uL (4.8-10.8) Red Blood Count 3.64 MIL/uL (4.00-5.50) L Hemoglobin 11.9 g/dL (12.0-16.0) L Hematocrit 37.5 % (36-48) Mean Corpuscular Volume 103.0 fL (79-99) H Mean Corpuscular Hemoglobin 32.7 pg (27.0-33.0) Mean Corpuscular Hemoglobin Concent 31.7 g/dL (32.0-36.0) L Red Cell Distribution Width 14.6 % (11.0-15.5) Platelet Count 92 K/uL (130-400) L Mean Platelet Volume 12.1 fL (7.5-10.5) H Immature Granulocyte % (Auto) 0.6 % (0-1) Neutrophils (%) (Auto) 65.4 % (40.0-77.0) Lymphocytes (%) (Auto) 18.6 % (21.0-51.0) L Monocytes (%) (Auto) 7.9 % (3.0-13.0) Eosinophils (%) (Auto) 6.7 % (0.0-8.0) Basophils (%) (Auto) 0.8 % (0.0-5.0) Neutrophils # (Auto) 4.2 K/uL (1.8-7.7) Lymphocytes # (Auto) 1.2 K/uL (1.0-4.8) Monocytes # (Auto) 0.5 K/uL (0.1-1.0) Eosinophils # (Auto) 0.43 K/uL (0.00-0.70) Basophils # (Auto) 0.05 K/uL (0.00-0.20) Absolute Immature Granulocyte (auto 0.04 K/uL (0-1) Nucleated Red Blood Cells 0.0 % (0.0-0.19) Sodium Level 140 mmol/L (136-145) Potassium Level 6.5 mmol/L (3.5-5.1) *H Chloride Level 103 mmol/L (101-111) Carbon Dioxide Level 26 mmol/L (21-32) Blood Urea Nitrogen 38 mg/dL (7-18) H Creatinine 9.2 mg/dL (0.5-1.0) *H Glomerular Filtration Rate Calc 4 mL/min (>90) Random Glucose 210 mg/dL (70-105) H Total Calcium 8.5 mg/dL (8.5-10.1) Total Creatine Kinase 24 U/L (21-232) # Troponin I High Sensitivity 23 ng/L (4-50) B-Type Natriuretic Peptide 1720 pg/mL (0-100) H Whole Blood Glucose 198 MG/DL (70-110) H Labs Reviewed?: Yes MDM MDM: Patient is a 73-year-old female with a past medical history of end-stage renal disease on hemodialysis presenting to the emergency department with chest pain and shortness for breath. According to daughter was at bedside, patient was set to have her fistula fixed surgically tomorrow. She was called today to get preop labs done before 2:00 p.m. however that was at the same time her dialysis was scheduled. She decided to missed dialysis and go to her preop labs. She was later called during the day to immediately report to the ER after she was found to have a potassium of 7.5. Patient was not able to immediately report to the ER in waited several hours until her daughter could bring her to the ER. On arrival patient is reporting an increase of shortness for breath and chest pain. Denies any other complaints. Patient is on a Saturday and Saturday dialysis schedule and is followed by clarifying plant operator Dr. Lu. She has a right chest access with her last dialysis being done on Saturday which was three days ago. On physical examination patient is in moderate respiratory distress. She is tachypneic with O2 saturations in the low 90s on arrival. Patient was put on non-rebreather with improvement of O2 saturation to 100% however she can tenderness to remained tachypneic. She has a Lava in place with no palpable thrill. She has a right chest axis. She has rales to bilateral lung alvarez. Her initial EKG showed normal sinus rhythm with a ventricular rate of 76 beats per minute with no ST elevations or bundle branch blocks noted. Her CBC shows a hemoglobin of 11 point narrowing. A platelets count of 92. Her chemistries reveal a critical potassium of 6.5, creatinine of 9.2, and a BUN of 38. BNP is elevated at 1720. Hyperkalemia protocol was initiated. Gaming Cashier Dr. Lu was consulted and he recommends admission for stat dialysis. Case was discussed with benchmark service who agrees to admit the patient for further observation and management. Differential diagnosis: End-stage renal disease on hemodialysis, electrolyte abnormality, fluid overload, pulmonary edema Rationale: Tests considered and ordered secondary to shared decision making inc lude: Previous outside records reviewed: Old ER visits. Risk of complication and/or morbidity or mortality of patient management: None Medications-Per medication reconciliation Need for hospitalization: Patient does meet criteria for hospitalization. Need for emergency major/minor surgery: No There are no social concerns with this patient. Prescription drug management Prescriptions will include symptomatic care Patient's prior external medical records from other ER visits were reviewed by me as indicated. Prior testing and results from previous visits were reviewed. Prior tests were taken into account with medical decision making and resource utilization, independent historian/historians were used to obtain complete medical history. I independently interpreted the test that were performed, results were reviewed by me and considered findings on radiology if ordered. Medical management and examination interpretation discussions were had by me with other qualified healthcare professionals as indicated for the patient's care. ED Course Orders Procedure Category Date Status Time Cbc With Differential LAB 01/13/24 Complete 18:20 Basic Metabolic Panel LAB 01/13/24 Complete 18:20 B-Type Natriuretic LAB 01/13/24 Complete Peptide 18:20 Creatine Kinase, Total LAB 01/13/24 Complete 18:20 Troponin I High LAB 01/13/24 Complete Sensitivity 18:20 Urinalysis Profile LAB 01/13/24 Logged 18:20 Chest 1vw RAD 01/13/24 Resulted 18:20 12 Lead Ekg Tracing- EKG 01/13/24 Complete Technical 19:13 Calcium Gluc 1gm PHA 01/13/24 Complete (Calcium Gluc 1gm 19:30 Dextrose 50%-Water PHA 01/13/24 Complete (Dextrose 50%-Water) 19:30 Insulin Regular, PHA 01/13/24 Complete Human 3ml (Humulin R 19:30 Albuterol 0.083% PHA 01/13/24 In Process 2.5mg/3ml (Proventil 19:30 Bipap Settings RT 01/13/24 Transmitted 19:51 Dextrose 50%-Water PHA 01/13/24 Complete (D50w) 19:57 Dialysis-Inpatient DIAL 01/13/24 Transmitted 20:20 [place] [facility] [place] 01/13/24 Transmitted Dialysis 20:20 Obtain Consent For: CPOE 01/13/24 Transmitted 20:20 Nephrology Consult [facility] 01/13/24 Transmitted 20:22 Lorazepam 2 Mg PHA 01/13/24 Complete (Ativan) 21:00 Edm Admit Bridge Order ADM 01/13/24 Transmitted 20:37 Cardiovascular Consult [facility] 01/13/24 Transmitted 20:39 Current Medications Medications (Trade) Dose Ordered Sig/Gertrude Route PRN Reason Start Time Stop Time Status Last Admin Dose Admin Albuterol Sulfate (Proventil 0.083% 2.5mg/3ml) 10 mg ONCE IH 01/13/24 19:30 02/12/24 19:29 01/13/24 19:56 Calcium Gluconate 1 gm/Sodium Chloride 110 ml @ 110 mls/hr ONCE ONCE IV 01/13/24 19:30 01/13/24 20:29 DC 01/13/24 20:11 Dextrose (D50w) 50 ml STK-MED ONCE IV 01/13/24 19:57 01/13/24 19:58 DC Dextrose (Dextrose 50%-Water) 25 gm ONCE ONCE IV 01/13/24 19:30 01/13/24 19:31 DC 01/13/24 20:12 Insulin Human Regular (humuLIN R 100 UNIT/ML 3ML) 5 unit ONCE ONCE IV 01/13/24 19:30 01/13/24 19:31 DC 01/13/24 20:12 Vital Signs Date Time Temp Pulse Resp B/P (MAP) Pulse Ox O2 Delivery O2 Flow Rate FiO2 01/13/24 20:38 90 19 30 01/13/24 19:56 69 20 01/13/24 19:38 98.6 86 30 163/63 98 Room Air* 0 21 01/13/24 18:26 97.5 78 16 160/60 98 Room Air 0 8:05PM: Case discussed with Dr. Lu clarifying plant operator who recommends stat dialysis. Dialysis nurses will be called .[facility] [address] [place] [address] IMAGING REPORT Signed PATIENT: AUDREY YOON MR#: [id number] : 1950 SEX: F AGE: 73 LOCATION: ED ORDER 20 STATUS: REG REPORT#: [id number] SERVICE 19 REASON: sob ORDERING PHYSICIAN: VIELKA ATWOOD PROCEDURE: CXR1VW - CHEST 1VW CHEST 1VW REASON: sob COMPARISON: 01/13/2024 FINDINGS: There is stable cardial megaly. There is no pulmonary vascular congestion. Lungs are clear. Dialysis catheter is again noted on the right. IMPRESSION: 1. Stable cardiomegaly, no acute finding. DICTATED BY: ROB SANTANA MD DATE: 01/13/241926 ELECTRONICALLY SIGNED BY: ROB SANTANA MD DATE: 01/13/241929 HEART Score Response (Comments) Value History: Moderate suspicion (+1) 1 EKG: Repolarization changes 1 Age: > 65yrs (+2) 2 Risk Factors: 3+ risk factors (+2) 2 Initial Troponin: Normal limit (0) 0 HEART Score Risk: Mod Risk for MACE (4-6) Total 6 Critical Care Note Critical Time: 45 minutes Comments Total critical care time: Approximately 45 minutes Due to a high probability of clinically significant, life threatening deterioration, the patient required my highest level of preparedness to inte rvene emergently and I personally spent this critical care time directly and personally managing the patient. This critical care time included obtaining a history; examining the patient; pulse oximetry; ordering and review of studies; arranging urgent treatment with development of a management plan; evaluation of patient's response to treatment; frequent reassessment; and, discussions with other providers. This critical care time was performed to assess and manage the high probability of imminent, life-threatening deterioration that could result in multi-organ failure. It was exclusive of separately billable procedures and treating other patients and teaching time. Please see MDM section and the rest of the note for further information on patient assessment and treatment. DX & DISP Disposition: Inpatient Departure Impression: Primary Impression: ESRD (end stage renal disease) on dialysis Additional Impressions: Hyperkalemia, Fluid overload Condition: Stable Referrals: RASHEED IBARRA MD (PCP) I have reviewed the case, and I agree with, Diagnosis and Plan I performed the substantive portion of the visit. I have reviewed and personally made and approve the management plan that is documented in the note by myself or the NORM. I acknowledge for responsibility for the patient's management plan. VIELKA ATWOOD Jan 13, 2024 20:13
--- NOTE | 2024-01-13 20:36 | NUR ---
MARGARETH LOGISTICS DIRECTOR WITH BENCHMARK AT BEDSIDE TO EVALUATE PATIENT
--- NOTE | 2024-01-13 20:39 | NUR ---
NONOG LASTING ROOM MACHINE OPERATOR AT BEDSIDE
--- NOTE | 2024-01-13 20:52 | EKG ---
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 : 1950 Requested By: ARINA BROWER Order Number: [id number] Reading MD: Calvin Lu Measurements Intervals [place] Rate: 76 P: -89 VT: 165 QRS: -43 QRSD: 108 T: 140 QT: 419 QTc: 471 Interpretive Statements Sinus or ectopic atrial rhythm Supraventricular bigeminy Left axis deviation Repol abnrm suggests ischemia, lateral leads Compared to ECG 01/13/2024 15:51:22 Atrial premature complex(es) now present Left-axis deviation now present Early repolarization now present Possible ischemia now present Left bundle-branch block no longer present Electronically Signed On 01-16-2024 18:55:04 TYPE DISK QUALITY CONTROL SUPERVISOR by Calvin Lu Please click the below link to view image of tracing.
[2024-01-13] MEDS: LORazepam 2 MG/ML 1 ML VIAL IVP ONE (20:57)
[2024-01-13] MEDS ORDERED: acetaMINOPHEN 325 MG TAB PO PRN (21:00)
[2024-01-13] MEDS ORDERED: acetaMINOPHEN 650 MG SUPPOSITORY RC PRN (21:00)
[2024-01-13] MEDS ORDERED: LAbetaLOL 20MG SYG IV PRN (21:00)
[2024-01-13] MEDS: FAMOTIDINE 20MG TAB PO SCH (21:00)
[2024-01-13] MEDS ORDERED: hydrALAZine 20MG/ML VIAL IV PRN (21:00)
--- NOTE | 2024-01-13 21:00 | NUR ---
MACHO YOON (DAUGHTER) [phone]
--- NOTE | 2024-01-13 21:32 | HP ---
[facility] HISTORY & PHYSICAL Date Patient Seen: Jan 13, 2024 Time of Visit: 21:18 Supervising Physician: Dr. Taylor Cota Primary Care Physician: Dr. Ruelas Outpatient Specialists: [ ] Inpatient Consults: Dr. Lu, Dr. Leija PROBLEM LIST: Acute hypoxic respiratory failure likely from fluid overload due to missed HD, POA ESRD, with HD catheter via right chest, Saturday HD schedule Malfunctioning AV fistula left upper arm, POA Hyperkalemia, POA COPD, POA Hypertension, POA DM type 2, with hyperglycemia, POA Atrial fibrillation, rate controlled at this time currently on aspirin, POA Liver cirrhosis, POA Morbid Obesity, BMI of 36.3 POA PLAN: Admit to PCCU VS per unit protocol Complete bedrest for now Continue BiPAP Continue DuoNeb q.6 hours NPO after midnight Nephrology consulted Obtain laboratory post HD Limit sedation for now Bilateral SCDs Keep SBP less than 160 P.r.n. hydralazine labetalol Start p.r.n. Ativan for anxiety Consult CT surgery Continue cardiac monitoring CBC, CMP, magnesium level daily Keep head of bed above 30 Aspiration precautions Intubation watch HPI: 73-year-old female with past medical history of ESRD on HD with Dr. Lu, COPD, hypertension, DM type 2, atrial fibrillation, liver cirrhosis, and a recent diagnosis of malfunctioning left AV fistula here for hyperkalemia and acute respiratory failure. Apparently patient has been having issues with the AV fistula, she is supposed to undergo surgery in the morning however her doctor advised her to come to hospital for preop labs. Apparently she is supposed to undergo hemodialysis today but due to admission she missed it. She was also informed by HD center that her potassium was elevated and advised her to go to E D for further medical evaluation. In ED he was found to have acute hypoxic respiratory failure concerning for possible fluid overload requiring BiPAP placement. In ED stat CBC was done and showed no acute infection however there is chronic anemia, her chemistry showed potassium level of 6.5, with BUN and creatinine consistent with chronic kidney disease. Her BNP was also elevated at 1720. Her initial chest x-ray did not reveal any acute pulmonary infiltrates but there is stable cardiomegaly. Nephrology has been consulted and we will do emergent HD at bedside. At present patient is currently hemodynamically stable, on BiPAP, mildly anxious, with associated respiratory distress. She is on 40% FiO2 on BiPAP with appropriate oxygen saturation. Patient denies any headache, chest pain, abdominal pain, fever, or flu-like symptoms. Patient denies any smoking, alcohol intake, illicit drug use. Patient is vaccinated against COVID virus and her her flu shot is up-to-date. PAST MEDICAL HX: see above PAST SURGICAL HX: noncontributory SOCIAL HISTORY: No tobacco, ETOH, or illicit drug use Coded Allergies: Iodinated Contrast- Oral and IV Dye (Unverified Allergy, Unknown, 03/20/17) REVIEW OF SYSTEMS: 12 point ROS reviewed with patient. Pertinent positives mentioned above. Other manuel negative. PHYSICAL EXAM: GENERAL: alert, weak, awake oriented x 3 HEENT: EOMI, Sclera non icteric, moist mucosa NECK: Supple, no JVD, trachea midline LUNGS: Clear breath sounds bilaterally. No wheezes, tachypneic with diminished bases HEART: Regular rate and rhythm. Normal S1 and S2, without murmurs ABD: Abdomen soft, nontender. Bowel sounds present EXT: No clubbing cyanosis or edema, right upper chest HD catheter, left upper arm AV fistula NEURO: Alert and oriented to person, follows commands Vital Signs (last 8hr) Date Time Temp Pulse Resp B/P (MAP) Pulse Ox O2 Delivery O2 Flow Rate FiO2 01/13/24 21:03 75 18 161/58 100 Bi-PAP+ 30 01/13/24 20:38 90 19 30 01/13/24 19:56 69 20 01/13/24 19:38 98.6 86 30 163/63 98 Room Air* 0 21 01/13/24 18:26 97.5 78 16 160/60 98 Room Air 0 LABS: Hematology Labs: Test 01/13/24 18:31 Range/Units White Blood Count 6.5 4.8-10.8 K/uL Red Blood Count 3.64 L 4.00-5.50 MIL/uL Hemoglobin 11.9 L 12.0-16.0 g/dL Hematocrit 37.5 36-48 % Mean Corpuscular Volume 103.0 H 79-99 fL Mean Corpuscular Hemoglobin 32.7 27.0-33.0 pg Mean Corpuscular Hemoglobin Concent 31.7 L 32.0-36.0 g/dL Red Cell Distribution Width 14.6 11.0-15.5 % Platelet Count 92 L 130-400 K/uL Mean Platelet Volume 12.1 H 7.5-10.5 fL Immature Granulocyte % (Auto) 0.6 0-1 % Neutrophils (%) (Auto) 65.4 40.0-77.0 % Lymphocytes (%) (Auto) 18.6 L 21.0-51.0 % Monocytes (%) (Auto) 7.9 3.0-13.0 % Eosinophils (%) (Auto) 6.7 0.0-8.0 % Basophils (%) (Auto) 0.8 0.0-5.0 % Neutrophils # (Auto) 4.2 1.8-7.7 K/uL Lymphocytes # (Auto) 1.2 1.0-4.8 K/uL Monocytes # (Auto) 0.5 0.1-1.0 K/uL Eosinophils # (Auto) 0.43 0.00-0.70 K/uL Basophils # (Auto) 0.05 0.00-0.20 K/uL Absolute Immature Granulocyte (auto 0.04 0-1 K/uL Nucleated Red Blood Cells 0.0 0.0-0.19 % Chemistry Labs: Test 01/13/24 20:10 01/13/24 18:31 Range/Units Whole Blood Glucose 198 H 70-110 MG/DL Sodium Level 140 136-145 mmol/L Potassium Level 6.5 *H 3.5-5.1 mmol/L Chloride Level 103 101-111 mmol/L Carbon Dioxide Level 26 21-32 mmol/L Blood Urea Nitrogen 38 H 7-18 mg/dL Creatinine 9.2 *H 0.5-1.0 mg/dL Glomerular Filtration Rate Calc 4 >90 mL/min Random Glucose 210 H 70-105 mg/dL Total Calcium 8.5 8.5-10.1 mg/dL Total Creatine Kinase 24 # 21-232 U/L Troponin I High Sensitivity 23 4-50 ng/L B-Type Natriuretic Peptide 1720 H 0-100 pg/mL DIAGNOSTICS / RADIOLOGY RESULTS: CHEST 1VW REASON: sob COMPARISON: 01/13/2024 FINDINGS: There is stable cardial megaly. There is no pulmonary vascular congestion. Lungs are clear. Dialysis catheter is again noted on the right. IMPRESSION: 1. Stable cardiomegaly, no acute finding. PLAN NEURO: Minimize central acting medications as possible. Maintain fall precautions, adequate lighting during the day PULMONARY: Supplemental 02 as needed. Maintain aspiration precautions at all times CARDIOVASCULAR: Follow hemodynamics. Vital signs per facility protocol GI & NUTRITION: Continue with nutritional support. Continue stool softeners and laxatives as needed. KIDNEYS & ELECTROLYTES: Strict monitoring of intake, output and overall fluid balance. Avoid nephrotoxic medications to the extent possible. Medications to be dosed according to renal function. Monitor electrolytes and replace as needed ENDOCRINE: Maintain blood glucose between 100-180 at all times. Hypoglycemia protocol in place INFECTIOUS DISEASE: Trend temperature, WBC and procalcitonin level Follow cultures, deescalate antibiotics as soon as possible. Panculture if new onset fever ONCOLOGY/HEMATOLOGY/COAGULATION: Monitor for s/s of bleeding Monitor hemoglobin, coagulation studies as needed SKIN: Pressure ulcer prevention per facility protocol Specialty mattress ORTHO/REHAB: Continue PT/OT Prophylaxis: Continue GI and DVT prophylaxis Code Status: Full Resuscitation Disposition: TBD Other: Total patient care time exceeds 35 minutes excluding all procedures. Supervising physician: MARGARETH Johnson [facility] Jan 13, 2024 21:32
--- NOTE | 2024-01-13 22:29 | NUR ---
REPORT GIVEN TO NEFTALI VILA
[2024-01-13] MEDS: 0.9%NACL 1000ML 1,000 ML IV SCH (23:27)
[2024-01-14] VITALS (24 sets, daily range): BP systolic 95–142; BP diastolic 48–94; PULSE 60–98; RESP 16–20; TEMP 97.5–99.1; O2SAT 96–100
[2024-01-14] MEDS: IpraTROPium 0.5 MG/2.5 ML INH IH SCH
[2024-01-14] MEDS: IpraTROPium 0.5 MG/2.5 ML INH IH ONE (00:02)
[2024-01-14] MEDS: INSULIN humuLIN R 100 UNIT/ML 3ML SQ SCH (00:17)
[2024-01-14] MEDS: LORazepam 2 MG/ML 1 ML VIAL IVP PRN (02:39)
[2024-01-14 03:54] LABS: BASOPHILS # (AUTO) 0.06 K/uL (0.00-0.20); BASOPHILS % (AUTO) 0.8 % (0.0-5.0); EOSINOPHILS # (AUTO) 0.26 K/uL (0.00-0.70); EOSINOPHILS % (AUTO) 3.6 % (0.0-8.0); HEMATOCRIT 33.2 % (36-48); IMMATURE GRANULOCYTE ABSOLUTE 0.05 K/uL (0-1); LYMPHOCYTES # (AUTO) 0.9 K/uL (1.0-4.8); MEAN CORPUSCULAR HEMOGLOBIN 32.4 pg (27.0-33.0); MEAN CORPUSCULAR HGB CONC 32.8 g/dL (32.0-36.0); MEAN CORPUSCULAR VOLUME 98.8 fL (79-99); MONOCYTES # (AUTO) 0.8 K/uL (0.1-1.0); MONOCYTES % (AUTO) 10.4 % (3.0-13.0); NEUTROPHILS # (AUTO) 5.2 K/uL (1.8-7.7); NEUTROPHILS % (AUTO) 71.5 % (40.0-77.0); PLATELET COUNT (AUTO) 84 K/uL (130-400); RED BLOOD CELL COUNT(AUTO) 3.36 MIL/uL (4.00-5.50); RED CELL DISTRIBUTION WIDTH 14.6 % (11.0-15.5); WHITE BLOOD COUNT (AUTO) 7.2 K/uL (4.8-10.8)
[2024-01-14 04:03] LABS: CREATININE 6.7 mg/dL (0.5-1.0); MAGNESIUM 1.9 mg/dL (1.80-2.40); PHOSPHORUS 4.7 mg/dL (2.5-4.9); POTASSIUM 4.8 mmol/L (3.5-5.1)
[2024-01-14] MEDS: HYDROcodone/APAP 5/325 1 TAB TABLET PO PRN (04:18)
[2024-01-14] MEDS: ASCORBIC ACID 500 MG TAB PO SCH (10:24)
[2024-01-14] MEDS: polyETHYLene GLYCol 3350 17 GM POWD.PACK PO SCH (10:24)
--- NOTE | 2024-01-14 13:22 | PN ---
[facility] PROGRESS NOTE Date Patient Seen: Jan 14, 2024 Time of Visit: 13:22 Supervising Physician: Dr. Chen Primary Care Physician: Dr. Ruelas Outpatient Specialists: [ ] Inpatient Consults: Dr. Lu, Dr. Leija PROBLEM LIST: Acute hypoxic respiratory failure likely from fluid overload due to missed HD, POA ESRD, with HD catheter via right chest, Saturday HD schedule Malfunctioning AV fistula left upper arm, POA Hyperkalemia, POA COPD, POA Hypertension, POA DM type 2, with hyperglycemia, POA Atrial fibrillation, rate controlled at this time currently on aspirin, POA Liver cirrhosis, POA Morbid Obesity, BMI of 36.3 POA PLAN: Continue HD per nephrology Repeat lab in AM Follow CV surgery plan for LAVA revision Downgrade to Medsurg with tele. INTERVAL HISTORY: 01/13 patient is awake alert and oriented x3 lying down in bed accompanied by her daughter at the bedside. Patient had completed dialysis yesterday with 2.9 L UF. Potassium this morning with 4.8 bicarb is 28. Glucose is 163. Hemodialysis per Nephrology to be started tomorrow. Otherwise patient is pending revision of the malfunctioning Lava on by CV surgery. At this time patient is stable we can actually downgraded her to medical-surgical. Continue to wean off oxygen as tolerated. REVIEW OF SYSTEMS: 12 point ROS reviewed with patient. Pertinent positives mentioned above. Otherwise negative. PHYSICAL EXAM: GENERAL: alert, weak, awake oriented x 3 HEENT: EOMI, Sclera non icteric, moist mucosa NECK: Supple, no JVD, trachea midline LUNGS: Clear breath sounds bilaterally. No wheezes, tachypneic with diminished bases HEART: Regular rate and rhythm. Normal S1 and S2, without murmurs ABD: Abdomen soft, nontender. Bowel sounds present EXT: No clubbing cyanosis or edema, right upper chest HD catheter, left upper arm AV fistula NEURO: Alert and oriented to person, follows commands Vital Signs (last 8hr) Date Time Temp Pulse Resp B/P (MAP) Pulse Ox O2 Delivery O2 Flow Rate FiO2 01/14/24 12:09 97.5 66 16 97/63 98 Nasal Cannula 2.0 01/14/24 11:10 66 18 01/14/24 09:30 99 Nasal Cannula* 2 28 01/14/24 07:52 98.1 63 16 110/49 99 Nasal Cannula 2.0 01/14/24 06:47 62 18 N/A Room Air 2.0 01/14/24 06:43 62 18 LABS: Hematology Labs: Test 01/14/24 03:27 Range/Units White Blood Count 7.2 4.8-10.8 K/uL Red Blood Count 3.36 L 4.00-5.50 MIL/uL Hemoglobin 10.9 L 12.0-16.0 g/dL Hematocrit 33.2 L 36-48 % Mean Corpuscular Volume 98.8 79-99 fL Mean Corpuscular Hemoglobin 32.4 27.0-33.0 pg Mean Corpuscular Hemoglobin Concent 32.8 32.0-36.0 g/dL Red Cell Distribution Width 14.6 11.0-15.5 % Platelet Count 84 L 130-400 K/uL Mean Platelet Volume 12.5 H 7.5-10.5 fL Immature Granulocyte % (Auto) 0.7 0-1 % Neutrophils (%) (Auto) 71.5 40.0-77.0 % Lymphocytes (%) (Auto) 13.0 L 21.0-51.0 % Monocytes (%) (Auto) 10.4 3.0-13.0 % Eosinophils (%) (Auto) 3.6 0.0-8.0 % Basophils (%) (Auto) 0.8 0.0-5.0 % Neutrophils # (Auto) 5.2 1.8-7.7 K/uL Lymphocytes # (Auto) 0.9 L 1.0-4.8 K/uL Monocytes # (Auto) 0.8 0.1-1.0 K/uL Eosinophils # (Auto) 0.26 0.00-0.70 K/uL Basophils # (Auto) 0.06 0.00-0.20 K/uL Absolute Immature Granulocyte (auto 0.05 0-1 K/uL Nucleated Red Blood Cells 0.0 0.0-0.19 % Chemistry Labs: Test 01/14/24 11:30 01/14/24 03:27 01/13/24 18:31 Range/Units Whole Blood Glucose 210 H 70-110 MG/DL Sodium Level 139 136-145 mmol/L Potassium Level 4.8 3.5-5.1 mmol/L Chloride Level 100 L 101-111 mmol/L Carbon Dioxide Level 28 21-32 mmol/L Blood Urea Nitrogen 22 H 7-18 mg/dL Creatinine 6.7 H 0.5-1.0 mg/dL Glomerular Filtration Rate Calc 6 >90 mL/min Random Glucose 163 H 70-105 mg/dL Total Calcium 7.9 L 8.5-10.1 mg/dL Phosphorus Level 4.7 2.5-4.9 mg/dL Magnesium Level 1.90 1.80-2.40 mg/dL Total Creatine Kinase 24 # 21-232 U/L Troponin I High Sensitivity 23 4-50 ng/L B-Type Natriuretic Peptide 1720 H 0-100 pg/mL DIAGNOSTICS / RADIOLOGY RESULTS: [ ] PLAN NEURO: Minimize central acting medications as possible. Maintain fall precautions, adequate lighting during the day PULMONARY: Supplemental 02 as needed. Maintain aspiration precautions at all times CARDIOVASCULAR: Follow hemodynamics. Vital signs per facility protocol GI & NUTRITION: Continue with nutritional support. Continue stool softeners and laxatives as needed. KIDNEYS & ELECTROLYTES: Strict monitoring of intake, output and overall fluid balance. Avoid nephrotoxic medications to the extent possible. Medications to be dosed according to renal function. Monitor electrolytes and replace as needed ENDOCRINE: Maintain blood glucose between 100-180 at all times. Hypoglycemia protocol in place INFECTIOUS DISEASE: Trend temperature, WBC and procalcitonin level Follow cultures, deescalate antibiotics as soon as possible. Panculture if new onset fever ONCOLOGY/HEMATOLOGY/COAGULATION: Monitor for s/s of bleeding Monitor hemoglobin, coagulation studies as needed SKIN: Pressure ulcer prevention per facility protocol Specialty mattress ORTHO/REHAB: Continue PT/OT Prophylaxis: Continue GI and DVT prophylaxis Code Status: Full Resuscitation Disposition: TBD Other: Total patient care time exceeds 35 minutes excluding all procedures. KAIA HERR[employer]A [employer] Jan 14, 2024 13:22
--- NOTE | 2024-01-14 15:27 | NUR ---
DC Plan Patient was coughing when this CM walked into room and requested CM speak to daughter Ruby at bedside. Per Ruby, patient lives alone. Has a provider for 37.5 hrs per week. Daughter Ruby stated patient would benefit from HH. Patient has a cane and wheel chair. [facility] for transportation (ph: [phone]). States attending had provided script for home O2, but this was not set up. Patient will need a home O2 eval and home O2 set up if qualifies. Denies falls at home. Patient wishes to return home upon discharge. SDOH needs present. Verbalized difficulty with transportation in getting food. States sometimes provider or her daughter will get groceries. Referred to Orly Tapia with [employer] for assistance. Addendum: 01/14/24 at 1619 by FRANCESCO BAUM Amended: Links added.
[2024-01-14 15:48] LABS: HEPATITIS B SURFACE ANTIBODY Negative (Reactive)
--- NOTE | 2024-01-14 16:30 | PN ---
SUBJECTIVE: The patient is a 73-year-old female known to us from evaluation in clinic for a left AV fistula, which she has had stents in the past and developed cellulitis. She was planned to have this removed and a new AV graft placed today, however, the patient arrived to the Emergency Room yesterday with hyperkalemia (potassium of 7) with evidence of fluid overload. She underwent an urgent hemodialysis and her potassium is now 4.8. The patient, however, still requires oxygen. OBJECTIVE: VITAL SIGNS: Reveal temperature 98.1, pulse 60, respirations 18, blood pressure is 115/48, oxygen saturations 98%. GENERAL: She is lying in bed, no apparent distress. HEENT: Reveals normocephalic, atraumatic. Her extraocular movements are intact. Her mucous membrane seemed somewhat dry. She has a PermCath exiting her right subclavicular region. HEART: Regular. LUNGS: Reveal mild rhonchi, but are somewhat distant and unlabored on oxygen. ABDOMEN: Reveals mild to moderate obesity. Positive bowel sounds. EXTREMITIES: Her left upper extremity reveals a palpable graft that appears to have stents in it. There is area of breakdown, but no cellulitis. ASSESSMENT AND PLAN: Poorly functioning left upper extremity AV fistula with multiple stents. We will plan removal and rerouting of a new AV graft. We would like the patient however to be off of oxygen and electrolytes at their baseline prior to scheduling. TID: [id number] RECEIPT: [id number]
--- NOTE | 2024-01-14 18:13 | CONS ---
REFERRING PHYSICIAN: Larry Cota MD REASON FOR CONSULTATION: Respiratory distress, volume overload, ESRD. HISTORY OF PRESENT ILLNESS: A 73-year-old female with a history of diabetes mellitus and hypertension. She has a history of known coronary artery disease. The patient presented to the hospital with increasing shortness of breath and orthopnea. Chest x-ray reveals pulmonary vascular congestion. The patient had been noncompliant with her outpatient dialysis. The patient did receive dialysis on the day of admission with 2.9 liters of ultrafiltration. The patient's pulmonary symptoms much improved. She is being seen in consultation for all of the above. PAST MEDICAL HISTORY: Diabetes mellitus, hypertension, coronary artery disease, ESRD. PAST SURGICAL HISTORY: AV access, PermCath. SOCIAL HISTORY: She lives independently. No tobacco use. FAMILY HISTORY: No renal disease in the family. ALLERGIES: SHE HAS AN ALLERGY TO IODINE. MEDICATIONS: All noted. REVIEW OF SYSTEMS: GENERAL: The patient is feeling weak and tired. HEENT: No change in vision. No change in hearing. CARDIOVASCULAR: There is no current chest pain or palpitations. PULMONARY: As described above. GASTROINTESTINAL: The patient is tolerating a diet. MUSCULOSKELETAL: Complains of weakness. PHYSICAL EXAMINATION: VITAL SIGNS: Blood pressure 110/49, pulse in the 60s. GENERAL: She is a chronically ill female, elderly, lying in bed on medical floor. HEENT: Head is atraumatic. Pupils equal, roving to light. Oropharynx is without exudate. Nares clear. NECK: There is no JVP. There is no thyromegaly. CARDIOVASCULAR: Regular. There is no S3, S4 gallop. LUNGS: Coarse with equal thoracic movement. ABDOMEN: Soft, nondistended, nontender. EXTREMITIES: Reveal no clubbing, no cyanosis. NEUROLOGIC: She is awake. She is alert. LABORATORY DATA: Sodium 139, potassium is 4.8, BUN 22, creatinine 6.7. Hemoglobin 10.9, hematocrit 33. IMPRESSION: * Respiratory distress, noncompliance with her dialysis. * Diabetes mellitus. * Hypertension. * Anemia. PLAN: The patient is feeling much improved post-dialysis. The patient's pulmonary symptoms have greatly improved. I did have a long discussion with the patient in regards to her poor compliance. The patient has had very similar admissions in the past. We will continue to monitor the patient closely. Once the patient is discharged, the patient will follow up in the [facility]. The patient with multiple questions, all of which were all answered. TID: [id number] RECEIPT: [id number]
--- NOTE | 2024-01-14 21:49 | NUR ---
PT LAYING IN BED WITH THE HEAD OF THE BED ELEVATED.PT DOES NOT APPEAR TO BE IN ANY DISTRESS,INSTRUCTED PT TO USE THE CALL LIGHT FOR ANY ASSISTANCE WHEN NEEDED.PT UNDERSTOOD BED IS LOW AND LOCKED CALL LIGHT WITHIN REACH .
[2024-01-15] VITALS (26 sets, daily range): BP systolic 95–155; BP diastolic 33–59; PULSE 52–80; RESP 16–20; TEMP 97.8–98.7; O2SAT 96–100
--- NOTE | 2024-01-15 03:00 | NUR ---
PT REFUSED MORNING LABS STATES SHE WANTS TO HAVE THEM DONE LATER IN THE MORNING .
[2024-01-15] MEDS: ondanSETRON 4MG INJ IVP PRN (08:42)
--- NOTE | 2024-01-15 09:41 | PN ---
DIALYSIS NOTE SUBJECTIVE: The patient was seen and evaluated, on hemodialysis, prescription noted. OBJECTIVE: VITAL SIGNS: Blood pressure 155/59. CARDIOVASCULAR: Regular. LUNGS: Coarse. IMPRESSION: End-stage renal disease. PLAN: The patient will continue with maximal ultrafiltration as blood pressure allows. TID: [id number] RECEIPT: [id number]
[2024-01-15 11:03] LABS: BASOPHILS # (AUTO) 0.05 K/uL (0.00-0.20); BASOPHILS % (AUTO) 0.8 % (0.0-5.0); EOSINOPHILS # (AUTO) 0.29 K/uL (0.00-0.70); EOSINOPHILS % (AUTO) 4.9 % (0.0-8.0); IMMATURE GRANULOCYTE ABSOLUTE 0.04 K/uL (0-1); LYMPHOCYTES # (AUTO) 0.7 K/uL (1.0-4.8); LYMPHOCYTES % (AUTO) 12.1 % (21.0-51.0); MEAN CORPUSCULAR HEMOGLOBIN 32.7 pg (27.0-33.0); MEAN CORPUSCULAR HGB CONC 32.2 g/dL (32.0-36.0); MEAN CORPUSCULAR VOLUME 101.6 fL (79-99); MONOCYTES # (AUTO) 0.6 K/uL (0.1-1.0); MONOCYTES % (AUTO) 10.1 % (3.0-13.0); NEUTROPHILS # (AUTO) 4.3 K/uL (1.8-7.7); NEUTROPHILS % (AUTO) 71.4 % (40.0-77.0); PLATELET COUNT (AUTO) 70 K/uL (130-400); RED BLOOD CELL COUNT(AUTO) 3.64 MIL/uL (4.00-5.50); RED CELL DISTRIBUTION WIDTH 14.6 % (11.0-15.5)
[2024-01-15 11:13] LABS: INR 1.03 (0.85-1.15); PROTHROMBIN TIME 11.1 SEC (9.6-11.6)
[2024-01-15 11:14] LABS: PARTIAL THROMBOPLASTIN TIME 27.1 SEC (26.3-35.5)
[2024-01-15 11:16] LABS: ALBUMIN 3.2 g/dL (3.5-5.0); BILIRUBIN,TOTAL 1.4 mg/dL (0.2-1.0); POTASSIUM 4.2 mmol/L (3.5-5.1); TOTAL PROTEIN, SERUM 6.9 g/dL (6.0-8.3)
[2024-01-15 13:47] LABS: HEPATITIS B CORE AB TOTAL Non-Reactive (Nonreactive); HEPATITIS B SURFACE ANTIGEN Non-Reactive (Nonreactive)
--- NOTE | 2024-01-15 16:16 | NUR ---
REPORT GIVEN TO BALJIT ESPINO AT BEDSIDE. PATIENT IS AWARE AND ALL BELONGINGS TAKEN WITH HER.
--- NOTE | 2024-01-15 16:45 | PN ---
[facility] PROGRESS NOTE Date Patient Seen: Jan 15, 2024 Time of Visit: 16:40 Supervising Physician: Dr. Funk Primary Care Physician: Dr. Ruelas Outpatient Specialists: [ ] Inpatient Consults: Dr. Lu, Dr. Leija PROBLEM LIST: Acute hypoxic respiratory failure likely from fluid overload due to missed HD, P OA ESRD, with HD catheter via right chest, Saturday HD schedule Malfunctioning AV fistula left upper arm, POA Hyperkalemia, POA COPD, POA Hypertension, POA DM type 2, with hyperglycemia, POA Atrial fibrillation, rate controlled at this time currently on aspirin, POA Liver cirrhosis, POA Morbid Obesity, BMI of 36.3 POA PLAN: Continue HD per nephrology Repeat lab in AM Follow CV surgery plan for LAVA revision Downgrade to Medsurg with tele. INTERVAL HISTORY: 01/13 patient is awake alert and oriented x3 lying down in bed accompanied by her daughter at the bedside. Patient had completed dialysis yesterday with 2.9 L UF. Potassium this morning with 4.8 bicarb is 28. Glucose is 163. Hemodialysis per Nephrology to be started tomorrow. Otherwise patient is pending revision of the malfunctioning Lava on by CV surgery. At this time patient is stable we can actually downgraded her to medical-surgical. Continue to wean off oxygen as tolerated. 01/14 patient is sitting in the bed accompanied by family not in acute distress, she has been weaned off of the oxygen on room air, saturation of oxygen of 100%. HD today with 2.3L UF. She is pending CV rec for LAVA revision tomorrow. Continue to monitor pt. Downgraded to MS. REVIEW OF SYSTEMS: 12 point ROS reviewed with patient. Pertinent positives mentioned above. Otherwise negative. PHYSICAL EXAM: GENERAL: alert, weak, awake oriented x 3 HEENT: EOMI, Sclera non icteric, moist mucosa NECK: Supple, no JVD, trachea midline LUNGS: Clear breath sounds bilaterally. No wheezes, tachypneic with diminished bases HEART: Regular rate and rhythm. Normal S1 and S2, without murmurs ABD: Abdomen soft, nontender. Bowel sounds present EXT: No clubbing cyanosis or edema, right upper chest HD catheter, left upper arm AV fistula NEURO: Alert and oriented to person, follows commands Vital Signs (last 8hr) Date Time Temp Pulse Resp B/P (MAP) Pulse Ox O2 Delivery O2 Flow Rate FiO2 01/15/24 12:41 97.9 61 16 107/41 Nasal Cannula 2.0 01/15/24 12:15 64 16 96/40 Nasal Cannula 2.0 01/15/24 12:00 64 16 96/40 Nasal Cannula 2.0 01/15/24 11:45 64 16 102/40 Nasal Cannula 2.0 01/15/24 11:30 64 16 95/40 Nasal Cannula 2.0 01/15/24 11:24 64 18 01/15/24 11:24 64 18 N/A Room Air 2.0 28 01/15/24 11:15 64 16 102/40 Nasal Cannula 2.0 01/15/24 11:00 63 16 108/42 Nasal Cannula 2.0 01/15/24 10:45 61 16 95/44 Nasal Cannula 2.0 01/15/24 10:30 59 16 124/50 Nasal Cannula 2.0 01/15/24 10:15 59 16 117/50 Nasal Cannula 2.0 01/15/24 10:00 59 16 127/49 Nasal Cannula 2.0 01/15/24 09:45 56 16 112/50 Nasal Cannula 2.0 01/15/24 09:30 67 16 114/53 Nasal Cannula 2.0 01/15/24 09:20 97.9 64 16 112/53 Nasal Cannula 2.0 01/15/24 09:10 97.9 61 20 112/53 100 Nasal Cannula 2.0 LABS: Hematology Labs: Test 01/15/24 10:55 Range/Units White Blood Count 6.0 4.8-10.8 K/uL Red Blood Count 3.64 L 4.00-5.50 MIL/uL Hemoglobin 11.9 L 12.0-16.0 g/dL Hematocrit 37.0 36-48 % Mean Corpuscular Volume 101.6 H 79-99 fL Mean Corpuscular Hemoglobin 32.7 27.0-33.0 pg Mean Corpuscular Hemoglobin Concent 32.2 32.0-36.0 g/dL Red Cell Distribution Width 14.6 11.0-15.5 % Platelet Count 70 L 130-400 K/uL Mean Platelet Volume 11.9 H 7.5-10.5 fL Immature Granulocyte % (Auto) 0.7 0-1 % Neutrophils (%) (Auto) 71.4 40.0-77.0 % Lymphocytes (%) (Auto) 12.1 L 21.0-51.0 % Monocytes (%) (Auto) 10.1 3.0-13.0 % Eosinophils (%) (Auto) 4.9 0.0-8.0 % Basophils (%) (Auto) 0.8 0.0-5.0 % Neutrophils # (Auto) 4.3 1.8-7.7 K/uL Lymphocytes # (Auto) 0.7 L 1.0-4.8 K/uL Monocytes # (Auto) 0.6 0.1-1.0 K/uL Eosinophils # (Auto) 0.29 0.00-0.70 K/uL Basophils # (Auto) 0.05 0.00-0.20 K/uL Absolute Immature Granulocyte (auto 0.04 0-1 K/uL Nucleated Red Blood Cells 0.0 0.0-0.19 % Platelet Morphology Comment See comments Chemistry Labs: Test 01/15/24 12:09 01/15/24 10:55 01/14/24 03:27 01/13/24 18:31 Range/Units Whole Blood Glucose 123 H 70-110 MG/DL Sodium Level 135 L 136-145 mmol/L Potassium Level 4.2 3.5-5.1 mmol/L Chloride Level 97 L 101-111 mmol/L Carbon Dioxide Level 30 21-32 mmol/L Blood Urea Nitrogen 21 H 7-18 mg/dL Creatinine 5.0 H 0.5-1.0 mg/dL Glomerular Filtration Rate Calc 9 >90 mL/min Random Glucose 141 H 70-105 mg/dL Total Calcium 8.0 L 8.5-10.1 mg/dL Total Bilirubin 1.4 H 0.2-1.0 mg/dL Aspartate Amino Transf (AST/SGOT) 15 10-37 U/L Alanine Aminotransferase (ALT/SGPT) 13 12-78 U/L Alkaline Phosphatase 269 H 50-136 U/L Total Protein 6.9 6.0-8.3 g/dL Albumin 3.2 L 3.5-5.0 g/dL Phosphorus Level 4.7 2.5-4.9 mg/dL Magnesium Level 1.90 1.80-2.40 mg/dL Total Creatine Kinase 24 # 21-232 U/L Troponin I High Sensitivity 23 4-50 ng/L B-Type Natriuretic Peptide 1720 H 0-100 pg/mL Coagulation Labs: Test 01/15/24 10:55 Range/Units Prothrombin Time 11.1 9.6-11.6 SEC Prothromb Time International Ratio 1.03 0.85-1.15 Activated Partial Thromboplast Time 27.1 26.3-35.5 SEC DIAGNOSTICS / RADIOLOGY RESULTS: [ ] PLAN NEURO: Minimize central acting medications as possible. Maintain fall precautions, adequate lighting during the day PULMONARY: Supplemental 02 as needed. Maintain aspiration precautions at all times CARDIOVASCULAR: Follow hemodynamics. Vital signs per facility protocol GI & NUTRITION: Continue with nutritional support. Continue stool softeners and laxatives as needed. KIDNEYS & ELECTROLYTES: Strict monitoring of intake, output and overall fluid balance. Avoid nephrotoxic medications to the extent possible. Medications to be dosed according to renal function. Monitor electrolytes and replace as needed ENDOCRINE: Maintain blood glucose between 100-180 at all times. Hypoglycemia protocol in place INFECTIOUS DISEASE: Trend temperature, WBC and procalcitonin level Follow cultures, deescalate antibiotics as soon as possible. Panculture if new onset fever ONCOLOGY/HEMATOLOGY/COAGULATION: Monitor for s/s of bleeding Monitor hemoglobin, coagulation studies as needed SKIN: Pressure ulcer prevention per facility protocol Specialty mattress ORTHO/REHAB: Continue PT/OT Prophylaxis: Continue GI and DVT prophylaxis Code Status: Full Resuscitation Disposition: TBD Other: Total patient care time exceeds 35 minutes excluding all procedures. ANN MARIEROSHANSAVANNAHBABITA [facility] Jan 15, 2024 16:45
--- NOTE | 2024-01-15 20:00 | NUR ---
ASSESS SHIFT ASSESSMENT DONE, PLEASE REFER TO CHART. PT REQUESTED TO SHOWER, PCP MADE AWARE. INSTRUCTED TO BE NPO POST MN, PT VERBALIZES UNDERSTANDING. CALL LIGHT WITHIN REACH.
[2024-01-15] MEDS: INSULIN humuLIN R 100 UNIT/ML 3ML SQ SCH (21:00)
[2024-01-16] VITALS (27 sets, daily range): BP systolic 102–158; BP diastolic 32–96; PULSE 52–130; RESP 15–19; TEMP 97.1–98.3; O2SAT 95–99
[2024-01-16 05:44] LABS: HEMATOCRIT 34.8 % (36-48); MEAN CORPUSCULAR HEMOGLOBIN 32.6 pg (27.0-33.0); MEAN CORPUSCULAR HGB CONC 32.5 g/dL (32.0-36.0); MEAN CORPUSCULAR VOLUME 100.3 fL (79-99); RED BLOOD CELL COUNT(AUTO) 3.47 MIL/uL (4.00-5.50); RED CELL DISTRIBUTION WIDTH 14.6 % (11.0-15.5)
[2024-01-16 05:49] LABS: CREATININE 6.1 mg/dL (0.5-1.0); POTASSIUM 4.8 mmol/L (3.5-5.1)
[2024-01-16 06:05] LABS: INR 1.06 (0.85-1.15); PROTHROMBIN TIME 11.4 SEC (9.6-11.6)
[2024-01-16 06:07] LABS: PARTIAL THROMBOPLASTIN TIME 27.1 SEC (26.3-35.5)
--- NOTE | 2024-01-16 06:30 | NUR ---
CONSENT PT ALREADY AWAKE, NO CONCERNS VERBALIZED. NO DISTRESS NOTED. CONSENT FOR SX SIGNED BY PT AND WITNESSED BY SWEEPER BRUSH MAKER MACHINE. FORM PLACED IN CHART. PCP IN TO ASSIST PT WITH SECOND SHOWER WITH HESAYDALENS. KEPT NPO. FOR MORE CARE.
--- NOTE | 2024-01-16 09:21 | PN ---
SUBJECTIVE: A 73-year-old female with history of diabetes mellitus and hypertension. The patient initially presented with significant shortness of breath and volume overload. She has been noncompliant with her dialysis sessions. The patient has received dialysis in the hospital and pulmonary symptoms have greatly improved. The patient was noted to have nonfunctioning AV access and being seen by surgical service for surgery and she is being seen for all of the above. REVIEW OF SYSTEMS: GENERAL: She is feeling improved since admission. HEENT: No change in vision. No change in hearing. CARDIOVASCULAR: There is no current chest pain or palpitations. PULMONARY: No shortness of breath. GASTROINTESTINAL: She is tolerating a diet. MUSCULOSKELETAL: Complains of weakness. PHYSICAL EXAMINATION: VITAL SIGNS: Blood pressure 134/59, pulse in the 50s. GENERAL: She is a chronically ill female, elderly, lying in bed on the medical floor. HEENT: Head is atraumatic. Pupils are equal and roving to light. Oropharynx is without exudate. Nares are clear. NECK: There is no JVP. There is no thyromegaly, no mass. CARDIOVASCULAR: Regular. There is no S3, S4, gallop. LUNGS: Coarse with equal thoracic movement. ABDOMEN: Soft, nondistended, nontender. EXTREMITIES: No clubbing, no cyanosis. NEUROLOGIC: She is awake. She is alert. LABORATORY DATA: Sodium 135, potassium is 4.8. BUN 23, creatinine 6. Hemoglobin 11, hematocrit 34. IMPRESSION: * Respiratory distress, improved with dialysis. * Diabetes mellitus. * Hypertension. * Anemia. PLAN: The patient has been counseled in regards to her compliance with her general medical care including her outpatient dialysis sessions. The patient's pulmonary symptoms have greatly improved. The patient is being seen by surgical service in regards to revision of the AV access. She will continue dialysis on a Saturday, Saturday, Saturday schedule. She is receiving erythropoietin injections for the anemia and we will follow while in the hospital. TID: [id number] RECEIPT: [id number]
--- NOTE | 2024-01-16 10:35 | PN ---
[facility] PROGRESS NOTE Date Patient Seen: Jan 16, 2024 Time of Visit: 10:35 Supervising Physician: [Dr. Funk] Primary Care Physician: Dr. Ruelas Outpatient Specialists: [ ] Inpatient Consults: Dr. Lu, Dr. Leija PROBLEM LIST: Acute hypoxic respiratory failure likely from fluid overload due to missed HD, POA ESRD, with HD catheter via right chest, Saturday HD schedule Malfunctioning AV fistula left upper arm, POA Hyperkalemia, POA COPD, POA Hypertension, POA DM type 2, with hyperglycemia, POA Atrial fibrillation, rate controlled at this time currently on aspirin, POA Liver cirrhosis, POA Morbid Obesity, BMI of 36.3 POA PLAN: Continue HD per nephrology Repeat lab in AM Follow CV surgery plan for LAVA revision Downgrade to Medsurg with tele. INTERVAL HISTORY: 01/13 patient is awake alert and oriented x3 lying down in bed accompanied by her daughter at the bedside. Patient had completed dialysis yesterday with 2.9 L UF. Potassium this morning with 4.8 bicarb is 28. Glucose is 163. Hemodialysis per Nephrology to be started tomorrow. Otherwise patient is pending revision of the malfunctioning Lava on by CV surgery. At this time patient is stable we can actually downgraded her to medical-surgical. Continue to wean off oxygen as tolerated. 01/14 patient is sitting in the bed accompanied by family not in acute distress, she has been weaned off of the oxygen on room air, saturation of oxygen of 100%. HD today with 2.3L UF. She is pending CV rec for LAVA revision tomorrow. Continue to monitor pt. Downgraded to MS. 01/15 158/70 with a heart rate of 69, afebrile on room air. Heart rate was elevated overnight but has since improved. Patient underwent hemodialysis with 4.6 L removed. She is pending LAVA revision per Cardiothoracic surgery. Family at bedside updated on care plan. REVIEW OF SYSTEMS: 12 point ROS reviewed with patient. Pertinent positives mentioned above. Otherwise negative. PHYSICAL EXAM: GENERAL: alert, weak, awake oriented x 3 HEENT: EOMI, Sclera non icteric, moist mucosa NECK: Supple, no JVD, trachea midline LUNGS: Clear breath sounds bilaterally. No wheezes, tachypneic with diminished bases HEART: Regular rate and rhythm. Normal S1 and S2, without murmurs ABD: Abdomen soft, nontender. Bowel sounds present EXT: No clubbing cyanosis or edema, right upper chest HD catheter, left upper arm AV fistula NEURO: Alert and oriented to person, follows commands Vital Signs (last 8hr) Date Time Temp Pulse Resp B/P (MAP) Pulse Ox O2 Delivery O2 Flow Rate FiO2 01/16/24 08:00 98.2 58 18 134/59 96 Room Air 01/16/24 06:48 65 18 N/A Room Air 21 01/16/24 06:48 65 18 01/16/24 04:00 98.1 108 18 137/72 100 Room Air LABS: Hematology Labs: Test 01/16/24 05:36 01/15/24 10:55 Range/Units White Blood Count 6.0 4.8-10.8 K/uL Red Blood Count 3.47 L 4.00-5.50 MIL/uL Hemoglobin 11.3 L 12.0-16.0 g/dL Hematocrit 34.8 L 36-48 % Mean Corpuscular Volume 100.3 H 79-99 fL Mean Corpuscular Hemoglobin 32.6 27.0-33.0 pg Mean Corpuscular Hemoglobin Concent 32.5 32.0-36.0 g/dL Red Cell Distribution Width 14.6 11.0-15.5 % Platelet Count 69 L 130-400 K/uL Mean Platelet Volume 12.4 H 7.5-10.5 fL Nucleated Red Blood Cells 0.0 0.0-0.19 % Immature Granulocyte % (Auto) 0.7 0-1 % Neutrophils (%) (Auto) 71.4 40.0-77.0 % Lymphocytes (%) (Auto) 12.1 L 21.0-51.0 % Monocytes (%) (Auto) 10.1 3.0-13.0 % Eosinophils (%) (Auto) 4.9 0.0-8.0 % Basophils (%) (Auto) 0.8 0.0-5.0 % Neutrophils # (Auto) 4.3 1.8-7.7 K/uL Lymphocytes # (Auto) 0.7 L 1.0-4.8 K/uL Monocytes # (Auto) 0.6 0.1-1.0 K/uL Eosinophils # (Auto) 0.29 0.00-0.70 K/uL Basophils # (Auto) 0.05 0.00-0.20 K/uL Absolute Immature Granulocyte (auto 0.04 0-1 K/uL Platelet Morphology Comment See comments Chemistry Labs: Test 01/16/24 05:36 01/16/24 05:35 01/15/24 10:55 Range/Units Sodium Level 135 L 136-145 mmol/L Potassium Level 4.8 3.5-5.1 mmol/L Chloride Level 96 L 101-111 mmol/L Carbon Dioxide Level 30 21-32 mmol/L Blood Urea Nitrogen 23 H 7-18 mg/dL Creatinine 6.1 H 0.5-1.0 mg/dL Glomerular Filtration Rate Calc 7 >90 mL/min Random Glucose 131 H 70-105 mg/dL Total Calcium 7.9 L 8.5-10.1 mg/dL Whole Blood Glucose 147 H 70-110 MG/DL Total Bilirubin 1.4 H 0.2-1.0 mg/dL Aspartate Amino Transf (AST/SGOT) 15 10-37 U/L Alanine Aminotransferase (ALT/SGPT) 13 12-78 U/L Alkaline Phosphatase 269 H 50-136 U/L Total Protein 6.9 6.0-8.3 g/dL Albumin 3.2 L 3.5-5.0 g/dL Coagulation Labs: Test 01/16/24 05:36 Range/Units Prothrombin Time 11.4 9.6-11.6 SEC Prothromb Time International Ratio 1.06 0.85-1.15 Activated Partial Thromboplast Time 27.1 26.3-35.5 SEC DIAGNOSTICS / RADIOLOGY RESULTS: CHEST 1VW REASON: sob COMPARISON: 01/13/2024 FINDINGS: There is stable cardial megaly. There is no pulmonary vascular congestion. Lungs are clear. Dialysis catheter is again noted on the right. IMPRESSION: 1. Stable cardiomegaly, no acute finding. PLAN NEURO: Minimize central acting medications as possible. Maintain fall precautions, adequate lighting during the day PULMONARY: Supplemental 02 as needed. Maintain aspiration precautions at all times CARDIOVASCULAR: Follow hemodynamics. Vital signs per facility protocol GI & NUTRITION: Continue with nutritional support. Continue stool softeners and laxatives as needed. KIDNEYS & ELECTROLYTES: Strict monitoring of intake, output and overall fluid balance. Avoid nephrotoxic medications to the extent possible. Medications to be dosed according to renal function. Monitor electrolytes and replace as needed ENDOCRINE: Maintain blood glucose between 100-180 at all times. Hypoglycemia protocol in place INFECTIOUS DISEASE: Trend temperature, WBC and procalcitonin level Follow cultures, deescalate antibiotics as soon as possible. Panculture if new onset fever ONCOLOGY/HEMATOLOGY/COAGULATION: Monitor for s/s of bleeding Monitor hemoglobin, coagulation studies as needed SKIN: Pressure ulcer prevention per facility protocol Specialty mattress ORTHO/REHAB: Continue PT/OT Prophylaxis: Continue GI and DVT prophylaxis Code Status: Full Resuscitation Disposition: TBD Other: Total patient care time exceeds 35 minutes excluding all procedures. MARIAM LAGUERRE Jan 16, 2024 10:35
[2024-01-16] MEDS ORDERED: BUPIvacaine/PF 0.5% 30ML VIAL ONE (13:42)
[2024-01-16] MEDS ORDERED: LIDOCAINE HCL 1% 20 ML VIAL ONE (13:42)
[2024-01-16] MEDS ORDERED: HEParin-NS 1,000 UNIT/500 ML 500 ML IV ONE (13:42)
[2024-01-16] MEDS ORDERED: ceFAZolin SODIUM 1 GM VIAL ONE ×3 (13:42→18:54)
[2024-01-16] MEDS ORDERED: LIDOCAINE PF 100MG/5ML (2%) SYRINGE 5ML ONE (18:24)
[2024-01-16] MEDS ORDERED: proPOFol 10 MG/ML 20ML VIAL IV ONE (18:25)
[2024-01-16] MEDS ORDERED: ketaMINE 50MG/ML SYRINGE 50 MG/ML DISP.SYRIN ONE (18:26)
[2024-01-16] MEDS: ceFAZolin SODIUM 2 GM VIAL IVPB ONE (18:30)
[2024-01-16] MEDS ORDERED: phenylEPHRINE HCL 10 MG/ML 1ML VIAL IV ONE (18:36)
[2024-01-16] MEDS ORDERED: FENTanyl CITRate PF 50 MCG/1 ML 2ML VIAL ONE (18:45)
[2024-01-16] MEDS ORDERED: HEParin 10,000 UNIT/10ML (1,000 UNIT/ML) VIAL ONE (18:54)
[2024-01-16] MEDS ORDERED: PROTamine SULFate 10 MG/ML 5 ML VIAL ONE (18:54)
[2024-01-16] MEDS ORDERED: acetaMINOPHEN 325 MG TAB PO PRN (19:00)
[2024-01-16] MEDS ORDERED: traMADol HCL 50 MG TABLET PO PRN (19:00)
--- NOTE | 2024-01-16 20:45 | NUR ---
RECEIVED PT RECEIVED FROM PACU NURSE DIANA BLUM. CLAIMS OF PAINS TO SX SITE ON LEFT ARM. BULKY DRESSING NOTED, DRY AND INTACT. POST OP V/S STARTED, STABLE. PLACED ON O2 AT 2LPM VIA NC. POSITIONED COMFORTABLY IN BED WITH HOB ELEVATED. TRAMADOL GIVEN FOR PAINS AND DUE MEDS ADMINISTERED, TOLERATED WELL. CALL LIGHT WITHIN REACH. WILL RE-ASSESS PT. Addendum: 01/17/24 at 0048 by DAVION WARD RN RN Amended: Links added.
[2024-01-16] MEDS: LACTULOSE 20 GM/30 ML UDCUP PO SCH (20:59)
[2024-01-16] MEDS: traMADol HCL 50 MG TABLET PO PRN (20:59)
[2024-01-16] MEDS: FAMOTIDINE 20MG TAB PO SCH (20:59)
--- NOTE | 2024-01-16 23:00 | NUR ---
BLEED NOTED PT'S SX SITE ON AMANDA DRESSING IS SOAKED WITH BLOOD. REMOVED OUTER DRESSING OF KERLIX, KEPT GAUZE DRESSING ON TOP OF SX SITE UNTOUCHED. PLACED NEW KERLIX AND KEPT PRESSURE DRESSING. COLD PACKS PLACED ON SX SITE AND A LITER WEIGHT OF NS FOR PRESSURE. ELEVATED LEFT ARM IN A PILLOW. ASSISTED PT TO USE BEDPAN FOR BM. CLEANSED AND CHANGED PT. RE-POSITIONED COMFORTABLY IN BED. WILL RE-ASSESS BLEEDING.
--- NOTE | 2024-01-16 23:43 | OP ---
DATE OF PROCEDURE: 01/16/2024 PREOPERATIVE DIAGNOSIS: Infected left upper extremity AV graft. POSTOPERATIVE DIAGNOSIS: Infected left upper extremity AV graft. PROCEDURES PERFORMED: Excision of infected segment of AV graft and placement of a new 6 mm Mooers-Gildardo interposition graft. OPERATING SURGEON: Art Yanez MD HOME CHILD CARE PROVIDER: eKnroy Betancourt MD ANESTHESIOLOGIST: ____ PSYCH ASSISTANT. TYPE OF ANESTHESIA: General endotracheal anesthesia. BRIEF HISTORY: The patient is a 73-year-old female whom I saw in clinic after she had developed cellulitis over her left upper extremity AV graft. She was given antibiotics and this resolved; however, there was a feeling that the graft to the AV infected and should be removed. Since the cellulitis and any evidence of systemic infection was gone, we felt that we would remove the infected segment of graft ____ part of the two ends of the graft in place and placed a new interposition AV graft through a new subcutaneous tunnel. FINDINGS: The patient had stented AV graft. There was no purulence around the graft. The middle three-fourths of the graft was excised and a new 6 mm Mooers-Gildardo graft was tunneled in a new subcutaneous tunnel lateral to the original tunnel and sewn in an end-to-end fashion to the two ends of the graft. Part of the wound was left open and packed. DESCRIPTION OF PROCEDURE: The patient was brought to the operating room and placed on the operating table in supine position. She was given general endotracheal anesthesia. Her left arm was prepped and draped in the usual sterile fashion. An elliptical incision was made over the middle part of the graft. It along with the skin over it was dissected out and the patient was given 7500 units of IV heparin. Both ends of the graft was then clamped with DeBakey clamps and the middle three quarters of the graft was excised. A new 6 mm Mooers-Gildardo graft was then tunneled in the subcutaneous tissue lateral to the original tunnel. End-to-end anastomoses were then performed to both with the new graft to both ends of the old AV graft using a running 6-0 Prolene sutures. The clamps were released and the patient was given protamine. The two ends of the graft were then covered with subcutaneous tissues using separate Vicryl sutures and skin clips. The middle ends of the wound was then left open and packed with a gauge and wrapped with Kerlix. The patient was then undraped, extubated after being aroused from general endotracheal anesthesia and taken to the recovery room in stable condition. TID: [id number] RECEIPT: [id number]
[2024-01-17] VITALS (30 sets, daily range): BP systolic 96–142; BP diastolic 40–95; PULSE 52–70; RESP 16–21; TEMP 97.5–98.2; O2SAT 96–99
--- NOTE | 2024-01-17 | NUR ---
RE-ASSESS DRESSING TO LEFT [place] GRAFT SITE IS SOAKED AGAIN. CHANGED KERLIX AND PRESSURE DRESSING WITH CAROL WRAP DONE. COLD PACKS RE-APPLIED AND 10 LB WEIGHT PLACED ON SX SITE. KEPT ARM ELEVATED. CHARGE NURSE LONG MADE AWARE OF SX SITE BLEEDING AND CN IN TO RE-ASSESS PT. WILL KEEP ON CLOSE WATCH.
--- NOTE | 2024-01-17 00:40 | NUR ---
ORDNANCE ENGINEERING TECHNICIAN ORDNANCE ENGINEERING TECHNICIAN RAMOS, SHANK SANDER FOR BENCHMARK, MADE AWARE OF SX SITE BLEEDING. NEW ORDERS GIVEN, PLEASE REFER TO CPOE.
[2024-01-17 01:04] LABS: HEMATOCRIT 32.7 % (36-48); MEAN CORPUSCULAR HEMOGLOBIN 32.8 pg (27.0-33.0); MEAN CORPUSCULAR HGB CONC 32.7 g/dL (32.0-36.0); MEAN CORPUSCULAR VOLUME 100.3 fL (79-99); RED BLOOD CELL COUNT(AUTO) 3.26 MIL/uL (4.00-5.50); RED CELL DISTRIBUTION WIDTH 14.3 % (11.0-15.5); WHITE BLOOD COUNT (AUTO) 6.9 K/uL (4.8-10.8)
[2024-01-17 01:12] LABS: CREATININE 7.6 mg/dL (0.5-1.0); MAGNESIUM 2.3 mg/dL (1.80-2.40); POTASSIUM 5.3 mmol/L (3.5-5.1)
[2024-01-17 01:15] LABS: INR 1.06 (0.85-1.15); PROTHROMBIN TIME 11.4 SEC (9.6-11.6)
[2024-01-17] MEDS: ceFAZolin SODIUM 1 GM VIAL IVPB SCH (01:16)
--- NOTE | 2024-01-17 03:30 | NUR ---
BLEED TIPPLE WORKER WENT TO CHECK ON PT'S SX SITE AND NOTED DRESSING TO BE SATURATED WITH BLOOD. CN MADE AWARE. QUICK CLOT DRESSING APPLIED TO BLEEDING SITE, 4X4 ON SX WOUND WITH CLOT KEPT ON. COVERED SX WOUND WITH 4X4, WRAPPED WITH KERLIX AND SECURED WITH CAROL WRAP. COLD PACKS APPLIED TO SX SITE AND WEIGHT KEPT ON FOR PRESSURE. ELEVATE ARM IN BED ON A PILLOW. WILL RE-ASSESS BLEEDING.
--- NOTE | 2024-01-17 06:00 | NUR ---
ROUNDS CHECKED PT'S DRESSING TO SX SITE, DRY AND INTACT. DENIES ANY PAINS AT THIS TIME. KEPT COMFORTABLE IN BED. FOR MORE CARE.
--- NOTE | 2024-01-17 09:11 | PN ---
DIALYSIS NOTE SUBJECTIVE: The patient is seen and evaluated on hemodialysis, prescription noted. OBJECTIVE: VITAL SIGNS: Blood pressure 113/42. CARDIOVASCULAR: Regular. LUNGS: Coarse. IMPRESSION: End-stage renal disease. PLAN: The patient will continue with maximal ultrafiltration as blood pressure allows. The patient can safely be discharged from a renal standpoint. If the patient is discharged, she is highly encouraged to follow up at the dialysis unit. TID: [id number] RECEIPT: [id number]
--- NOTE | 2024-01-17 12:17 | DS ---
[facility] DISCHARGE SUMMARY Date Patient Seen: Jan 17, 2024 Time of Visit: 12:17 Supervising Physician: [Dr. Funk] Primary Care Physician: Dr. Ruelas Outpatient Specialists: [ ] Inpatient Consults: Dr. Lu, Dr. 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 Lu, COPD, hypertension, DM type 2, atrial fibrillation, liver cirrhosis, and a recent diagnosis of malfunctioning left AV fistula here for hyperkalemia and acute respiratory failure. Apparently patient has been having issues with the AV fistula, she is supposed to undergo surgery in the morning however her doctor advised her to come to hospital for preop labs. Apparently she is supposed to undergo hemodialysis today but due to admission she missed it. She was also informed by HD center that her potassium was elevated and advised her to go to ED for further medical evaluation. In ED he was found to have acute hypoxic respiratory failure concerning for possible fluid overload requiring BiPAP placement. In ED stat CBC was done and showed no acute infection however there is chronic anemia, her chemistry showed potassium level of 6.5, with BUN and creatinine consistent with chronic kidney disease. Her BNP was also elevated at 1720. Her initial chest x-ray did not reveal any acute pulmonary infiltrates but there is stable cardiomegaly. Nephrology was consulted for emergent HD at bedside. She was initiated on BiPAP with 40% FiO2 with appropriate oxygen saturation. Cardiothoracic surgery was consulted for evaluation and patient underwent LAVA revision on 01/15 after which she underwent hemodialysis on 01/16 and tolerated well. She was discharged in stable condition on room air in no acute distress. She was in normal sinus rhythm at the time of discharge. She is not a candidate for anticoagulation therapy given thrombocytopenia in liver cirrhosis. She understands the risks and benefits of anticoagulation and agrees with the plan. The patient was treated for the following problems: ACTIVE PROBLEM LIST FOR THE HOSPITALIZATION: Acute hypoxic respiratory failure likely from fluid overload due to missed HD, POA ESRD, with HD catheter via right chest, Saturday HD schedule Malfunctioning AV fistula left upper arm, POA s/p LAVA revision on 01/15 Hyperkalemia, POA COPD, POA Hypertension, POA DM type 2, with hyperglycemia, POA Paroxysmal atrial fibrillation, rate controlled at this time currently on aspirin, not a candidate for anticoagulation POA Liver cirrhosis, POA Morbid Obesity, BMI of 36.3 POA CHRONIC PROBLEMS: continue previous management per PCP unless otherwise indicated PROCEDURES: FINDINGS: The patient had stented AV graft. There was no purulence around the graft. The middle three-fourths of the graft was excised and a new 6 mm [place] graft was tunneled in a new subcutaneous tunnel lateral to the original tunnel and sewn in an end-to-end fashion to the two ends of the graft. Part of the wound was left open and packed. DISCHARGE MEDICATIONS: As listed below. Pt hemodynamically stable and afebrile at time of discharge. PCP notified of patients admission, hospital course and discharge. Continued Medications: Alprazolam (Alprazolam) 0.5 Mg Tab.rapdis 0.5 MG PO AD PRN for ANXIETY/AGITATION, TAB Aspirin (Aspirin) 81 Mg Tab.chew 81 MG PO mwf, TAB.CHEW Bimatoprost (Lumigan 0.01% Ophth Soln) 0.01 % Opsol 1 DROP OD BID for 30 Days, ML 0 Refills Calcium Acetate (Calcium Acetate) 667 Mg Tablet 2 TAB PO TID for 30 Days, #180 TAB 0 Refills WITH MEALS Diclofenac Sodium (Diclofenac Sodium) 3 % Gel..gram. 100 GM TP AD PRN for PAIN Ketorolac Tromethamine (Acular 0.5% Ophth Soln) 0.5 % Opsol 1 DROP OD BID for itching, #5 ML 0 Refills Lactulose (Lactulose) 10 Gram/15 Ml Solution 30 ML PO BID for constipation, #500 ML 0 Refills Loteprednol Etabonate (Loteprednol Etabonate) 0.5 % Drops.susp 2 DROP OP BID for 14 Days, #5 ML 0 Refills Midodrine HCl (Midodrine HCl) 5 Mg Tablet 1 TAB PO TID for 30 Days, #90 TAB 0 Refills Pregabalin (Pregabalin) 100 Mg Capsule 1 CAP PO TID PRN for PAIN MDD 3 Capsule(s) for 30 Days, #90 CAP 0 Refills Semaglutide (Ozempic) 1 Mg/0.75 Ml (4 Mg/3 Ml) Pen.injctr 0.5 MG SQ wed for 30 Days, #3 ML 0 Refills Sodium Zirconium Cyclosilicate (Lokelma) 10 Gram Powd.pack 1 PACKET PO ttss for 30 Days, #30 PACKET 0 Refills Tizanidine HCl (Tizanidine HCl) 4 Mg Capsule 4 MG PO AD PRN for anxiety, CAP PHYSICAL EXAM: GENERAL: alert, weak, awake oriented x 3 HEENT: EOMI, Sclera non icteric, moist mucosa NECK: Supple, no JVD, trachea midline LUNGS: Clear breath sounds bilaterally. No wheezes, tachypneic with diminished bases HEART: Regular rate and rhythm. Normal S1 and S2, without murmurs ABD: Abdomen soft, nontender. Bowel sounds present EXT: No clubbing cyanosis or edema, right upper chest HD catheter, left upper arm AV fistula NEURO: Alert and oriented to person, follows commands FOLLOW-UP: Follow-up with PCP in 2-3 days for routine evaluation. Not a candidate for anticoagulation due to liver cirrhosis and thrombocytopenia. RECOMMENDATIONS: See Discharge Instructions This case was seen and discussed with my supervising physician. More than 30 minutes spent on discharge process, including evaluation of the patient, discussion with nursing staff, medication reconciliation and follow-up appointments MARIAM LAGUERRE Jan 17, 2024 12:17
--- NOTE | 2024-01-17 18:05 | NUR ---
DISCHARGE HOME IV AND ID BANDS REMOVED. DISCHARGE INSTRUCTIONS GIVEN AND EXPLAINED TO PATIENT. BELONGINGS TAKEN AND PACKED BY DAUGHTER. PATIENT WHEELED DOWN TO PRIVATE CAR.
== END 2024-01-17 18:20 | disposition home or self-care (01) | DRG 252 ==
LOC: EDH 18:18 → OBSVTOIN 20:53 → EDHIP 20:53 → 2DH 23:08 → 3CH 01-15 16:11
PROVIDERS: ADMIT Internal Medicine; ATTEND Internal Medicine
PROC: 5A09357 Assistance with Respiratory Ventilation, Less than 24 Consecutive Hours, Continuous Positive Airway Pressure (ICD-10-PCS; principal; 2024-01-13)
PROC: 5A1D70Z Performance of Urinary Filtration, Intermittent, Less than 6 Hours Per Day (ICD-10-PCS; 2024-01-13)
PROC: 5A1D70Z Performance of Urinary Filtration, Intermittent, Less than 6 Hours Per Day (ICD-10-PCS; 2024-01-15)
PROC: 03WY0JZ Revision of Synthetic Substitute in Upper Artery, Open Approach (ICD-10-PCS; 2024-01-16)
PROC: 5A09357 Assistance with Respiratory Ventilation, Less than 24 Consecutive Hours, Continuous Positive Airway Pressure (ICD-10-PCS; 2024-01-16)
PROC: 5A1D70Z Performance of Urinary Filtration, Intermittent, Less than 6 Hours Per Day (ICD-10-PCS; 2024-01-17)
DX: T82.510A Breakdown (mechanical) of surgically created arteriovenous fistula, initial encounter (principal); J96.01 Acute respiratory failure with hypoxia; N18.6 End stage renal disease; I12.0 Hypertensive chronic kidney disease with stage 5 chronic kidney disease or end stage renal disease; L03.114 Cellulitis of left upper limb; E87.5 Hyperkalemia; E87.70 Fluid overload, unspecified; E66.01 Morbid (severe) obesity due to excess calories; E11.65 Type 2 diabetes mellitus with hyperglycemia; E11.22 Type 2 diabetes mellitus with diabetic chronic kidney disease; K74.60 Unspecified cirrhosis of liver; Y71.2 Prosthetic and other implants, materials and accessory cardiovascular devices associated with adverse incidents; J44.9 Chronic obstructive pulmonary disease, unspecified; D63.1 Anemia in chronic kidney disease; Y83.2 Surgical operation with anastomosis, bypass or graft as the cause of abnormal reaction of the patient, or of later complication, without mention of misadventure at the time of the procedure; F41.9 Anxiety disorder, unspecified; I51.7 Cardiomegaly; I25.10 Atherosclerotic heart disease of native coronary artery without angina pectoris; I48.0 Paroxysmal atrial fibrillation; Z99.2 Dependence on renal dialysis; Z68.36 Body mass index [BMI] 36.0-36.9, adult; Z91.158 Patient's noncompliance with renal dialysis for other reason; Z91.199 Patient's noncompliance with other medical treatment and regimen due to unspecified reason; Z79.82 Long term (current) use of aspirin
CPT/HCPCS: 36415; 71045; 80048; 80053; 82140; 82550; 82948; 83735; 83880; 84100; 84484; 85025; 85027; 85610; 85730; 86704; 86706; 86850; 86900; 86901; 87070; 87076; 87086; 87186; 87205; 87340; 90935; 93005; 94640; 94660; 94664; 96365; 96375; 99291; A4450; G0378; J0612; J0690; J1644; J1815; J2003; J2060; J2371; J2405; J2704; J2720; J3010; J3490; J7030; J7070; A4649; A4930; C1713; C1768; J0665

== ENCOUNTER → 2024-01-13 | Outpatient (CLI) | payer OTHER, MEDICARE ==
[~2024-01-13] VITALS: Ht 149.9 cm; Wt 81.6 kg
[~2024-01-13] MED LIST changes: +ALBUTEROL 0.083% 2.5 MG/3 ML INH IH ONE; +ALPR-410 PO; +ASPI-1197 PO; +BIMA12.5OS OD; +CALC667T8 PO; +CEPH500B PO; +DICL100G32 TP; -GABA-533 PO; +GABA-534 PO; +KETO.5OS OD; +LACT-441 PO; +LOTE5DRO14 OP; +MIDO5TAB4 PO; +PREG100C56 PO; -REGADENOSON 0.4 MG/5 ML PF SYG IVP ONE; +SEMA1PEN3 SQ; +SODI10PO2 PO; +TIZA4CAP8 PO
--- NOTE | 2024-01-13 15:09 | EKG ---
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
[2024-01-13 15:11] VITALS: BP 163/75; PULSE 66; RESP 18; TEMP 97.9
[2024-01-13 15:28] LABS: HEMATOCRIT 38.5 % (36-48); MEAN CORPUSCULAR HEMOGLOBIN 32.9 pg (27.0-33.0); MEAN CORPUSCULAR HGB CONC 31.4 g/dL (32.0-36.0); MEAN CORPUSCULAR VOLUME 104.6 fL (79-99); RED BLOOD CELL COUNT(AUTO) 3.68 MIL/uL (4.00-5.50); RED CELL DISTRIBUTION WIDTH 14.7 % (11.0-15.5); WHITE BLOOD COUNT (AUTO) 6.7 K/uL (4.8-10.8)
[2024-01-13 15:35] LABS: INR 1.03 (0.85-1.15); PROTHROMBIN TIME 11.1 SEC (9.6-11.6)
[2024-01-13 15:37] LABS: PARTIAL THROMBOPLASTIN TIME 27.1 SEC (26.3-35.5)
--- NOTE | 2024-01-13 15:50 | NUR ---
critical received call from lab in re to potassium 7.4. called daughter and informed pt needs to be taken to er for further evaluation of hyperkalemia. daughter also informed of risk due to hyperkalemia. daughter stated she would bring her to er. jimena licea rn and dr medellin also notified of potassium level and recommend pt come to er.
[2024-01-13 16:01] LABS: POTASSIUM 7.4 mmol/L (3.5-5.1)
[2024-01-13 16:02] LABS: CREATININE 9.1 mg/dL (0.5-1.0)
--- NOTE | 2024-01-13 16:31 | HMCIMG ---
CHEST 1VW REASON: PREOP COMPARISON: 07/17/2022 FINDINGS: There are stable cardiomegaly. There is no pulmonary vascular congestion. Lungs are clear. There is no pleural effusion. There is a right-sided dialysis catheter with tip in the right atrium. IMPRESSION: 1. Mild cardiac megaly, unchanged. 2. No acute finding.
--- NOTE | 2024-01-13 16:45 | NUR ---
f/u called daughter to make sure she is bringing pt to er. daughter stated she would bring her.
--- NOTE | 2024-01-13 16:58 | NUR ---
ekg reported to dr medellin. no new orders given at this time
== END | disposition home or self-care (01) ==
LOC: DAH 10:00 → EDSTATUS 19:00
PROVIDERS: ATTEND Thoracic Surgery (Cardiothoracic Vascular Surgery)
DX: Z01.818 Encounter for other preprocedural examination (principal); I51.7 Cardiomegaly; I77.0 Arteriovenous fistula, acquired; I44.7 Left bundle-branch block, unspecified
CPT/HCPCS: 36415; 71045; 80048; 85027; 85610; 85730; 86850; 86900; 86901; 93005; A6260

== ENCOUNTER → 2024-06-18 | Outpatient (CLI) | payer OTHER, MEDICARE ==
[~2024-06-18] MED LIST changes: -ALBU18HF7 IH; -AMLO-257 PO; -BIMA12.5OS OU; -CEPH500B PO; -CYCL30DR OU; -GABA-534 PO; -HYDR-3421 PO; -INSU200I4 SQ; -LINA290C PO; -MONT-47 PO; -OMEP40CA21 PO; -TRAM50TA4 PO; -ZOLP10TA6 PO
--- NOTE | 2024-06-25 10:06 | HMCSR ---
APPROVED REPORT EXAM: Two-dimensional and M-mode echocardiogram with Doppler and color Doppler. INDICATION ICD: R01.1 Cardiac murmur, unspecified 2D Dimensions RVDd4.7 cmLVEF(%)57.3 (>50%)LVED Vol(simp.)60.0 mL IVSd0.9 (0.7-1.1cm)FS(%)30 %LVES Vol(simp.)30.0 mL LVDd4.8 (3.8-5.6cm)Ao Root(2D)3.1 (2.0-3.7cm)LVEF(%, simp.)50 % PWd0.9 (0.7-1.1cm)LVOT diam1.9 (1.8-2.4cm)LA ESV INDEX (BP)44.53 mL/m2 LVDs3.4 (2.5-4.0cm)IVC diam3.5 cm Aortic Valve AoV Vmax1.3 m/Dana Peak GR6.6 mmHgLVOT Vmax1.0 m/s AoV VTI0.3 mAo Mean GR3.0 mmHgLVOT VTI0.23 m DENTON (VMAX)2.3 cm2AVA (VTI) 2.3 cm2 Mitral Valve MV E Ndpz429.7 cm/sDECEL Jlmr256 ms MV A Vmax62.6 cm/sP 1/2 T62 ms E/A ratio2.1MVA (PHT)3.5 cm2 MR Max PG84 mmHg TDI E/E' Egepmj24.3E/E' Efvuzuc03.1 Pulmonary Valve PV Vmax0.9 m/sPV VTI0.21 mPV Mean GR2 mmHg PV Peak GR3.1 mmHgPI End Ada. Genaro 0.7 cm/s Tricuspid Valve TR Vmax3.3 m/sRAP (EST) 15 eaRgBIIK06.0 mmHg TR Peak GR44.0 mmHg Left Ventricle The left ventricle is normal in size No regional wall motion abnormalities noted. Moderate concentric left ventricular hypertrophy. Left ventricle systolic function is low normal, estimated LVEF is 50-5 5%. Grade 3 diastolic dysfunction. Right Ventricle The right ventricle is moderately to severely dilated. Right ventricle systolic function is low gerry l, TAPSE 15 mm. Atria The left atrium is moderately dilated, 45 ml/m2. The right atrium is severely dilated. Aortic Valve Aortic valve is trileaflet. The leaflets are mildly thickened and calcified. Trace aortic regurgitati on. There is no aortic valvular stenosis. Mitral Valve Mild mitral annular calcification is noted. The leaflets are mildly thickened and calcified. Mild-mod erate eccentric mitral regurgitation. There is no mitral valve stenosis. Tricuspid Valve The tricuspid valve leaflets appear normal. Severe tricuspid regurgitation. RVSP is 44mmHg. Pulmonic Valve Pulmonic valve is not well visualized. Great Vessels The aortic root is normal in size. IVC is dilated and collapses <50% with inspiration. Pericardium No pericardial effusion. Conclusion The left atrium is moderately dilated, 45 ml/m2. The right atrium is severely dilated. The right ventricle is moderately to severely dilated. Moderate concentric left ventricular hypertrophy. No regional wall motion abnormalities noted. Left ventricle systolic function is low normal, estimated LVEF is 50-55%. Grade 3 diastolic dysfunction. Trace aortic regurgitation. Mild-moderate eccentric mitral regurgitation. Severe tricuspid regurgitation. PASP is 59mmHg. No pericardial effusion.
== END | disposition home or self-care (01) ==
LOC: SHCH 10:53
PROVIDERS: ATTEND Internal Medicine Cardiovascular Disease
DX: I08.3 Combined rheumatic disorders of mitral, aortic and tricuspid valves (principal); R01.1 Cardiac murmur, unspecified; I13.2 Hypertensive heart and chronic kidney disease with heart failure and with stage 5 chronic kidney disease, or end stage renal disease; E11.22 Type 2 diabetes mellitus with diabetic chronic kidney disease; N18.6 End stage renal disease; I50.32 Chronic diastolic (congestive) heart failure; R00.1 Bradycardia, unspecified; R55 Syncope and collapse; Z99.2 Dependence on renal dialysis
CPT/HCPCS: 36415; 80053; 83735; 83880; 84100; 84436; 84443; 84479; 85025; 93306

== ENCOUNTER → 2024-06-18 | Outpatient (CLI) | payer OTHER, MEDICARE ==
[2024-06-18 11:57] LABS: BASOPHILS # (AUTO) 0.08 K/uL (0.00-0.20); BASOPHILS % (AUTO) 1.5 % (0.0-5.0); EOSINOPHILS # (AUTO) 0.25 K/uL (0.00-0.70); EOSINOPHILS % (AUTO) 4.6 % (0.0-8.0); HEMATOCRIT 36.6 % (36-48); IMMATURE GRANULOCYTE ABSOLUTE 0.02 K/uL (0-1); LYMPHOCYTES # (AUTO) 1.1 K/uL (1.0-4.8); LYMPHOCYTES % (AUTO) 19.8 % (21.0-51.0); MEAN CORPUSCULAR HEMOGLOBIN 32.7 pg (27.0-33.0); MEAN CORPUSCULAR VOLUME 102.2 fL (79-99); MONOCYTES # (AUTO) 0.6 K/uL (0.1-1.0); MONOCYTES % (AUTO) 10.5 % (3.0-13.0); NEUTROPHILS # (AUTO) 3.4 K/uL (1.8-7.7); NEUTROPHILS % (AUTO) 63.2 % (40.0-77.0); PLATELET COUNT (AUTO) 82 K/uL (130-400); RED BLOOD CELL COUNT(AUTO) 3.58 MIL/uL (4.00-5.50); RED CELL DISTRIBUTION WIDTH 15.1 % (11.0-15.5); WHITE BLOOD COUNT (AUTO) 5.4 K/uL (4.8-10.8)
[2024-06-18 12:31] LABS: ALBUMIN 3.3 g/dL (3.5-5.0); BILIRUBIN,TOTAL 1.2 mg/dL (0.2-1.0); CREATININE 7.7 mg/dL (0.5-1.0); MAGNESIUM 2.5 mg/dL (1.80-2.40); PHOSPHORUS 5.8 mg/dL (2.5-4.9); POTASSIUM 5.6 mmol/L (3.5-5.1); T4 (THYROXINE) 6.8 ug/dL (4.7-13.3); THYROID STIMULATING HORMONE 2.66 uIU/mL (0.36-3.74); TOTAL PROTEIN, SERUM 7.2 g/dL (6.0-8.3)
== END | disposition home or self-care (01) ==
LOC: LAB 10:17
PROVIDERS: ATTEND Internal Medicine Cardiovascular Disease
DX: I10 Essential (primary) hypertension (principal); R55 Syncope and collapse; R00.1 Bradycardia, unspecified
CPT/HCPCS: 36415; 80053; 83735; 83880; 84100; 84436; 84443; 84479; 85025